=== PATIENT | female | born 1960 | race Caucasian/White ===

== ENCOUNTER → 2017-08-06 10:01 | Outpatient (CLI) | payer OTHER, SELFPAY ==
--- NOTE | 2017-08-06 10:11 | XR_ITS ---
XR chest 2V HISTORY: ITS.REASON: CHEST PAIN ORDERING PHYSICIAN: Elida Ortiz PATIENT AGE: 57 years COMPARISON: 02/22/2009 FINDINGS: The cardiomediastinal silhouette and pulmonary vascularity are within normal limits. The lungs are clear without infiltrates, suspicious nodules, or pleural effusions. Mild to moderate thoracic scoliosis convex right. IMPRESSION: No acute finding
[2017-08-06 10:43] LABS: Basophils % 0.4 % (0.1-2.0); Eosinophils # 0.2 K/mm3 (0.0-0.4); Eosinophils % 2.5 % (0.1-12.0); Hematocrit 45.1 % (37.0-47.0); Hemoglobin 14.8 g/dL (12.2-16.2); Lymphocytes # 1.2 K/mm3 (0.7-4.5); Mean Corpuscular HGB Conc 32.9 g/dL (31.8-35.4); Mean Corpuscular Hemoglobin 29.1 pg (27.0-31.2); Mean Corpuscular Volume 88.4 fl (81-99); Mean Platelet Volume 7.4 fl (7.4-10.4); Monocytes # 0.4 K/mm3 (0.1-1.0); Monocytes % 6.3 % (1.7-9.3); Neutrophils # 4.4 K/mm3 (1.8-7.8); Neutrophils % 71.7 % (37.0-80.0); Platelet Count 226 K/mm3 (142-424); Red Cell Distribution Width 11.9 % (11.5-17.5); White Blood Count 6.1 K/mm3 (4.8-10.8)
[2017-08-06 11:03] LABS: Troponin I < 0.02 ng/ml (0.00-0.06)
[2017-08-06 11:07] LABS: Alanine Aminotransferase 41 U/L (12-78); Albumin Level 3.6 gm/dL (3.4-5.0); Albumin/Globulin Ratio 0.9 (1.1-1.8); Alkaline Phosphatase 74 U/L (46-116); Anion Gap 11.3 mEq/L (5-15); Aspartate Amino Transferase 22 U/L (15-37); Bilirubin,Total 0.5 mg/dL (0.2-1.0); Blood Urea Nitrogen 13 mg/dL (7-18); C-Reactive Protein 1.5 mg/L (0.0-0.9); Calcium 8.7 mg/dL (8.5-10.1); Carbon Dioxide 31 mmol/L (21.0-32.0); Chloride 107 mmol/L (98-107); Creatine Kinase 111 U/L (26-192); Creatinine,Serum 0.71 mg/dL (0.55-1.02); Estimated Glomerular Filt Rate 84 ml/min (>60); GFR (African American) 102 ML/MIN (>60); Globulin 4.1 gm/dl (1.3-3.2); Glucose 103 mg/dL (74-106); Potassium 4.3 mmoL/L (3.5-5.1); Sodium 145 mmol/L (136-145); Thyroid Stimulating Hormone 1.37 uIU/ml (0.358-3.740); Total Protein,Serum 7.7 gm/dL (6.4-8.2)
== END ==
PROVIDERS: PCP Nurse Practitioner Family; Visit Provider Nurse Practitioner Family
DX: R07.9 Chest pain, unspecified (principal)
CPT/HCPCS: 36415; 71046; 80053; 82550; 84443; 84484; 85025; 86140

== ENCOUNTER → 2017-09-16 10:05 | Outpatient (CLI) | payer OTHER, SELFPAY ==
--- NOTE | 2017-09-16 10:08 | NM_ITS ---
CARDIOLITE SPECT MYOCARDIAL PERFUSION SCAN, REST AND STRESS: EXERCISE STRESS [facility] REVIEW QGS EF AND WALL MOTION EVALUATION: QPS - PERFUSION EVALUATION HISTORY: CHEST PAIN, PALPITATIONS DOSE: 11.02 mCi technetium 99m mibi intravenously at rest followed by 31.6 mCi technetium 99m mibi following the intravenous ministration of 0.4 mg of Lexiscan. Resting blood pressure is 157/83. Stress blood pressure 143/71. FINDINGS: Ejection fraction is calculated to be 70. Stress images reveal decreased activity in the anterolateral wall. Rest images reveal significantly improved activity in the lateral wall improvement in the anterior wall but still mildly diminished. Gated images calculated ejection fraction of 70% with anterior apical hypokinesis IMPRESSION: High risk abnormal stress test with large degree of anterior lateral ischemia accompanied by regional wall motion abnormality.
--- NOTE | 2017-09-16 10:08 | CA_ITS ---
PROCEDURE: 2-D M-mode and color Doppler study INDICATIONS FOR THE TEST: Chest pain + COPD Heart Murmur Tobacco Smoking Palpitations+ Fatigue Syncope Edema Hypertension Diabetes Mellitus Rheumatic Fever SOB+GARNICA Obesity+Hyperlipidemia Family History HD Additional History PATIENT INFORMATION HEIGHT: 60 WEIGHT:266 GENDER: Female B/P:142/59 2-D/M-MODE INTERPRETATION: 2-D MEASUREMENTS OBSERVED VALUES IN CMS Right Ventricular Dimension (RVDd) 2.3 Interventricular Septum (Thickness)(IVsd) 1.3 Left Ventricular Internal Dimensions(LVIDd) 4.4 Left Ventricular Posterior Wall (Thickness)(LVPWd) 0.7 Aortic Root 2.7 Aortic Cusp Separation 2.0 Left Atrial Dimensions (LAD) 4.3 2D 1. Left atrium is mildly enlarged, left ventricle is normal size, there is mild concentric left ventricular hypertrophy, visually estimated ejection fraction 55% with no obvious regional wall motion abnormality. 2. The right atrium and right ventricle are normal size and contractility. 3. The aortic valve is minimally thickened and fibrosed. 4. The mitral and tricuspid valvular grossly normal. 5. The pulmonic valve is poorly visualized. 6. No significant pericardial effusion noted. DOPPLER INTERROGATION: Doppler interrogation of the aortic, mitral and tricuspid valvular presence of mild mitral and tricuspid regurgitation, tricuspid regurgitant jet velocity is insufficient for calculation of the right ventricular systolic pressure, grade 1 diastolic dysfunction seen with tissue Doppler evidence of raised left atrial pressure. CONCLUSION: 1. Mildly enlarged left atrium, normal left ventricular size, mild concentric left ventricular hypertrophy, visually estimated ejection fraction 55% with no obvious regional wall motion abnormality, grade 1 diastolic dysfunction seen with tissue Doppler evidence of raised left atrial pressure. 2. Mild mitral and tricuspid regurgitation 3. No significant pericardial effusion noted.
--- NOTE | 2017-09-16 13:51 | HMH.ITSHM ---
diclofenac hydroxychloroqine lisinopril/hctz metoprolol promethazine rivaraxaban iron
== END ==
PROVIDERS: Family Provider Family Medicine; PCP Nurse Practitioner Family; Visit Provider Internal Medicine
DX: R07.9 Chest pain, unspecified (principal); R94.31 Abnormal electrocardiogram [ECG] [EKG]; R06.00 Dyspnea, unspecified; R00.2 Palpitations; E66.9 Obesity, unspecified
CPT/HCPCS: 78452; 93017; 93306; A9502; J2785

== ENCOUNTER → 2017-12-24 08:31 | Outpatient (CLI) | payer OTHER, SELFPAY ==
--- NOTE | 2017-12-24 08:32 | US_ITS ---
US Arterial Ankle Brachial Ind History: ITS.REASON: claudication, leg pain and fatigue ORDERING PHYSICIAN: Jake Mena MD PATIENT AGE: 57 years TECHNIQUE: Segmental pressures obtained of both right and left leg. These are compared to brachial blood pressure to yield index at each level sampled including summary DEBORAH. The data sheets from the procedure are available in PACS FINDINGS Rest study only performed today No prior studies available for comparison. Blood pressures reported are in millimeters mercury. RIGHT LEG DEBORAH = 1.2. RIGHT LEG TBI=.9 Brachial BP: 108 Thigh BP: 139 Calf BP: 140 Ankle PT: 125 Ankle DP : 121 Digit =93 LEFT LEG DEBORAH = 1.1 LEFT LEG TBI= 1.0 Brachial BPD: 104 Thigh BP: 131 Calf BP: 126 Ankle PT:113 Ankle DP: 107 Digit = 104 Pulses and waveforms: Normal IMPRESSION: The ABIs as reported above are within normal limits. Waveforms and pulses are also unremarkable.
== END ==
PROVIDERS: Family Provider Family Medicine; PCP Nurse Practitioner Family; Visit Provider Internal Medicine
DX: I73.9 Peripheral vascular disease, unspecified (principal)
CPT/HCPCS: 93922

== ENCOUNTER → 2018-03-21 09:00 | Outpatient (CLI) | payer OTHER, SELFPAY ==
--- NOTE | 2018-03-21 09:02 | MM_ITS ---
MM Dig screening mamm BI w/CAD CAD Screening COMPARISON: Analog mammograms 11/02/2009 INDICATION: There is a history of breast cancer patient maternal aunt diagnosed after menopause. TECHNIQUE: Standard CC and MLO images were obtained. R2 CAD reviewed. FINDINGS: The breasts are composed primarily of fat with scattered fibroglandular densities throughout each breast. There is a mole marker right breast. There are couple of benign-appearing calcifications right breast and there is a single benign-appearing calcification left breast. There are small nodes in both axilla. There is no suspicious lesion seen. IMPRESSION: Fibrofatty parenchyma with no suspicious lesion seen BI-RADS Category: 2 Benign Finding(s) RECOMMENDED FOLLOW-UP: 1YR - 1 YEAR FOLLOW-UP (A letter has been sent to the patient regarding results of the study.)
== END ==
PROVIDERS: PCP Nurse Practitioner Family; Visit Provider Nurse Practitioner Family
DX: Z12.31 Encounter for screening mammogram for malignant neoplasm of breast (principal)
CPT/HCPCS: 77067

== ENCOUNTER → 2019-07-15 13:26 | Outpatient (CLI) | payer OTHER, SELFPAY ==
--- NOTE | 2019-07-15 13:29 | MM_ITS ---
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 R2 CAD reviewed. FINDINGS: The breasts are of average density. Multiple benign appearing lymph nodes are seen bilaterally in the prepectoral regions. A 4.8 millimeter circumscribed nodule is seen in the superior retroareolar right breast approximately 5.2 centimeters deep to the anterior skin surface. This is best appreciated on the tomosynthesis views. A 6.9 millimeter well-circumscribed nodule is seen adjacent to the left chest wall on the exaggerated CC view. Ultrasound is recommended for further assessment of both breasts. Indeterminate clustered microcalcifications are seen in the deep lateral and superior left breast seen on the MLO view and the exaggerated CC view from the CC views. Magnification compression views are recommended. Clustered microcalcifications in the upper-outer quadrant of the right breast are more conspicuous on today's exam and magnification views are recommended. IMPRESSION: BI-RAD Category: 0 Need Additional Imaging Evaluation FOLLOW-UP: (A letter has been sent to the patient regarding results of the study.) Dictated by: Xander Thomason 07/16/2019 18:09 Electronically signed by Xander Thomason in [place] 07/16/2019 18:09
== END ==
PROVIDERS: PCP Nurse Practitioner Family; Visit Provider Nurse Practitioner Family
DX: Z12.31 Encounter for screening mammogram for malignant neoplasm of breast (principal)
CPT/HCPCS: 77063; 77067

== ENCOUNTER → 2019-07-29 10:36 | Outpatient (CLI) | payer OTHER, SELFPAY ==
--- NOTE | 2019-07-29 10:44 | US_ITS ---
PROCEDURE: US BREAST RT COMPLETE CLINICAL INDICATION: ABN MAMM COMPARISON: MM DIG SCREENING MAMM BI W/CAD from 07/15/2019 US BREAST LT COMPLETE from 07/29/2019 FINDINGS: At the 12 o'clock region near the nipple there is a 5 mm hypoechoic nodule suggestive of a small cyst. At 3 o'clock near the nipple there is a complex nodule in the subcutaneous area measuring 7 x 7 mm. This shows increased echogenicity peripherally with decreased echogenicity centrally. This is of questionable etiology possibly due to sebaceous cyst. Small abscess would be an additional consideration. IMPRESSION: Complex nodule in the 3 o'clock region of the right breast which could be due to a sebaceous cyst or small abscess. Suggest 3 month follow-up. BI-RADS category 3 probably benign. Recommend 3 month sonographic follow-up Dictated by: Darren Reyes MD 09/09/2019 17:05 Electronically signed by Darren Reyes MD in [place] 09/09/2019 17:05
--- NOTE | 2019-07-29 10:44 | US_ITS ---
PROCEDURE: US BREAST LT COMPLETE CLINICAL INDICATION: ABN MAMM COMPARISON: MM DIG SCREENING MAMM BI W/CAD from 07/15/2019 FINDINGS: No cystic or solid nodules evident. Small nodes are present in the axilla. IMPRESSION: Negative left breast ultrasound. BI-RADS category 1-. Recommend routine 12 month follow-up Dictated by: Darren Reyes MD 07/31/2019 12:05 Electronically signed by Darren Reyes MD in [place] 07/31/2019 12:05
== END ==
PROVIDERS: PCP Nurse Practitioner Family; Visit Provider Nurse Practitioner
DX: R92.8 Other abnormal and inconclusive findings on diagnostic imaging of breast (principal)
CPT/HCPCS: 76641

== ENCOUNTER → 2019-10-05 10:05 | Outpatient (CLI) | payer OTHER, SELFPAY ==
--- NOTE | 2019-10-05 10:55 | MM_ITS ---
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 These are mildly suspicious and stereotactic biopsy is suggested Right breast ultrasound: 12 o'clock there is a 5 x 3 mm hypoechoic nodule consistent with a cyst. At 3 o'clock there is a hyperechoic nodule with central area of decreased echogenicity. The nodule measures 5 x 4 mm previously measuring approximately 1 cm and has decreased in size. Left breast: Probably benign calcifications in the outer aspect of the left breast versus quantum artifact. Recommend six-month follow-up. IMPRESSION: Suspicious cluster of calcification of the right breast. Suggest stereotactic biopsy. BI-RAD Category: 4 Suspicious Abnormality - Biopsy Considered FOLLOW-UP: BIO Biopsy Recommended (A letter has been sent to the patient regarding results of the study.) Dictated by: Darren Reyes MD 10/09/2019 13:45 Electronically signed by Darren Reyes MD in [place] 10/09/2019 13:45
== END ==
PROVIDERS: PCP Nurse Practitioner Family; Visit Provider Nurse Practitioner
DX: R92.8 Other abnormal and inconclusive findings on diagnostic imaging of breast (principal)
CPT/HCPCS: 76641; 77062; 77066; G0279

== ENCOUNTER → 2019-11-11 09:37 | Outpatient (CLI) | payer OTHER, SELFPAY ==
--- NOTE | 2019-11-11 09:42 | MM_ITS ---
PROCEDURE: MM STEREOTACTIC LOC RT CLINICAL INDICATION: RT BREAST LUMP Right breast suspicious calcifications TECHNIQUE: The patient was given 1 mg of Xanax, Lortab 5 mg, and analgesia and minor sedation. Informed consent was obtained prior to sedation. Time-out procedure was performed The patient was placed on the stereotactic table and the abnormality was localized in the most appropriate projection. The breast was prepped in the routine manner, with sterile prep and the overlying skin anesthetized. A 3 to 4 mm skin incision was performed and the 9 gauge sorus vacuum-assisted core biopsy needle was advanced to the region of the calcification. Pre- and post fire images were obtained. After adequate positioning relative to the calcifications was ensured, multiple biopsies were obtained in the region of the calcifications specifically. The core biopsies obtained were sent for specimen mammography. After the calcifications were indeed identified on the specimen mammogram, the procedure was terminated. The patient tolerated the procedure well without complications. Specimen was sent for pathologic analysis which should be forthcoming within 3 working days. Routine follow-up phone call to patient is to be performed as well. A tiny titanium nonferromagnetic MicroMark was positioned through the mammotome needle into the biopsy site. IMPRESSION: 1. Successful stereotactic vacuum-assisted core biopsy of the breast calcifications. 2. Successful placement of a titanium metal MicroMark. 3. Pathologic analysis should be forthcoming within 3 working days. 4. No noted complications. SPECIMEN RADIOGRAPH: The mammographically evident calcifications from the prior study are currently evident within the Tan dish and within the specimens obtained during mammotome procedure. This is considered an adequate specimen and the procedure was terminated. IMPRESSION: Successful removal of described breast calcifications. BREAST MAMMOGRAM: Compared to the prior study, the previously noted calcification have been removed. A small MicroMark clip was inserted into the region of the calcifications. There is evidence of soft tissue changes in the region of the biopsy was soft tissue gas and edema. 5. Adequate placement of the MicroMark clip postbiopsy. 6. Postbiopsy changes within the breast. Dictated by: Darren Reyes MD 11/13/2019 10:32 Electronically signed by Darren Reyes MD in [place] 11/13/2019 10:32
== END ==
PROVIDERS: PCP Nurse Practitioner Family; Visit Provider Nurse Practitioner
DX: N63.10 Unspecified lump in the right breast, unspecified quadrant (principal)
CPT/HCPCS: 19081; 76098; 77065

== ENCOUNTER → 2020-11-01 10:03 | Outpatient (CLI) | payer OTHER, SELFPAY ==
--- NOTE | 2020-11-01 10:09 | XR_ITS ---
PROCEDURE: XR CHEST 2V CLINICAL HISTORY: COUGH COMPARISON: DX CXR2V XR chest 2V from 08/06/2017 FINDINGS: The cardiomediastinal silhouette and pulmonary vascularity are within normal limits. The lungs are clear without infiltrates, suspicious nodules, or pleural effusions. Dextroscoliosis of the lower thoracic spine. IMPRESSION: No acute findings. Dictated by: Darren Reyes MD 11/01/2020 11:08 Darren Reyes MD in [place] 11/01/2020 11:08
== END ==
PROVIDERS: PCP Nurse Practitioner Family; Visit Provider Nurse Practitioner Family
DX: R05 Cough (principal)
CPT/HCPCS: 71046

== ENCOUNTER → 2022-02-23 10:17 | Outpatient (CLI) | payer BC, SELFPAY ==
--- NOTE | 2022-02-23 10:25 | XR_ITS ---
FINAL REPORT CLINICAL HISTORY: RIGFT ANTERIOR KNEE PAIN FINDINGS: RIGHT KNEE Four views of the right knee were obtained. There is no acute fracture or dislocation. There are mild degenerative changes of the medial compartment. A small joint effusion is identified. Soft tissues are otherwise unremarkable. IMPRESSION: Mild degenerative change of the medial compartment with a small joint effusion. No acute abnormality. Reviewed, Interpreted and Dictated by Kaden South MD Transcribed by Mariana Campbell Authenticated and [facility]
== END ==
PROVIDERS: PCP Nurse Practitioner Family; Visit Provider Nurse Practitioner Family
DX: M25.561 Pain in right knee (principal)
CPT/HCPCS: 73562

== ENCOUNTER → 2022-03-15 14:13 | Outpatient (CLI) | payer BC, OTHER, SELFPAY | PROVIDERS: PCP Nurse Practitioner Family; Visit Provider Physician Assistant | DX: I51.89 Other ill-defined heart diseases (principal) | CPT/HCPCS: 93306 ==

== ENCOUNTER 2022-04-26 15:00 | Outpatient (RCR) | payer BC, SELFPAY | END 2022-05-15 17:15 | disposition home or self-care (01) | LOC: PT.CARL 15:00 | PROVIDERS: PCP Nurse Practitioner Family; Visit Provider Nurse Practitioner Women's Health | DX: M17.11 Unilateral primary osteoarthritis, right knee (principal) | CPT/HCPCS: 97010; 97014; 97110; 97163; 97530; G0283 ==

== ENCOUNTER → 2023-03-29 12:57 | Outpatient (CLI) | payer BC, SELFPAY ==
--- NOTE | 2023-03-29 12:57 | CT_ITS ---
FINAL REPORT TECHNIQUE: Before and after the administration of intravenous contrast, axial images through the chest were performed by computed tomography.This study was performed with techniques to keep radiation doses as low as reasonably achievable, (ALARA). Individualized dose reduction techniques using automated exposure control or adjustment of mA and/or kV according to the patient's size were employed. CLINICAL HISTORY: wheezing on auscultation-pt can hear it, h/oCovid COMPARISON: None FINDINGS: CHEST CT WITH AND WITHOUT CONTRAST: There is mild mediastinal adenopathy, which is nonspecific but favor reactive. No significant hilar or axillary adenopathy is seen. Mild changes of emphysema are present, as well as mild changes of scarring and fibrosis. The cardiac silhouette is unremarkable in appearance. There are several small nodules in the lung francois bilaterally, less than 1 cm in size. This includes a 5 mm posterior right upper lobe nodule seen best in image #32, and a 6 mm posterior left upper lobe nodule, also seen in image #32, and several others. No focal infiltrates or pleural effusions are identified. There is mild fatty infiltration of the liver noted in the upper abdomen. IMPRESSION: Several nodules are present in the lung francois bilaterally, all less than 1 cm in size, as described above. Would recommend 6-month follow-up chest CT to reevaluate. Mild mediastinal adenopathy, nonspecific but favor reactive. Reviewed, Interpreted and Dictated by Moe Cortés III, MD Transcribed by Josie Marin Authenticated and [facility]
[2023-03-29 13:26] LABS: Blood Urea Nitrogen 18 mg/dl (7-17); Calcium 8.8 mg/dl (8.4-10.2); Carbon Dioxide 25 mmol/L (22.0-30.0); Chloride 105 mmol/L (98-107); Estimated Glomerular Filt Rate 72 ml/min (>60); GFR (African American) 87 ML/MIN (>60); Glucose 95 mg/dl (74-100); Sodium 139 mmol/L (136-145)
== END ==
PROVIDERS: PCP Nurse Practitioner Family; Visit Provider Physician Assistant
DX: R06.2 Wheezing (principal); Z86.16 Personal history of COVID-19; E78.2 Mixed hyperlipidemia; I48.0 Paroxysmal atrial fibrillation; R53.83 Other fatigue; R60.9 Edema, unspecified; E66.01 Morbid (severe) obesity due to excess calories; Z68.43 Body mass index [BMI] 50.0-59.9, adult; I11.9 Hypertensive heart disease without heart failure
CPT/HCPCS: 71270; 80048; Q9967

== ENCOUNTER → 2023-05-16 15:39 | Outpatient (CLI) | payer BC, SELFPAY ==
[2023-05-16 15:22] LABS: Adenovirus,PCR Not Detected (NotDetected); Coronavirus 19, PCR Not Detected (NotDetected); Coronavirus 229E Not Detected (NotDetected); Coronavirus NL63 Not Detected (NotDetected); Coronavirus OC43 Not Detected (NotDetected); Coronovirus HKU1,PCR Not Detected (NotDetected); Human Metapneumovirus Not Detected (NotDetected); Influenza A, PCR Not Detected (NotDetected); Influenza AH1, 2009 Not Detected (NotDetected); Influenza AH1, PCR Not Detected (NotDetected); Influenza AH3,PCR Not Detected (NotDetected); Influenza B, PCR Not Detected (NotDetected); Parainfluenza 1, PCR Not Detected (NotDetected); Parainfluenza 2, PCR Not Detected (NotDetected); Parainfluenza 3, PCR Not Detected (NotDetected); Parainfluenza 4, PCR Not Detected (NotDetected); Rhinovirus/Enterovirus Not Detected (NotDetected)
[2023-05-16 16:57] LABS: Respiratory Syncytial Virus Detected (NotDetected)
== END ==
LOC: LAB.DROPOF 15:41
PROVIDERS: PCP Nurse Practitioner Family; Visit Provider Internal Medicine
DX: R05.9 Cough, unspecified (principal); R09.89 Other specified symptoms and signs involving the circulatory and respiratory systems; R06.2 Wheezing; B97.4 Respiratory syncytial virus as the cause of diseases classified elsewhere
CPT/HCPCS: 87632; 87635

== ENCOUNTER 2024-02-27 14:06 | Outpatient (CLI) | payer OTHER, MEDICARE, SELFPAY ==
--- NOTE | 2024-02-27 14:27 | CT_ITS ---
FINAL REPORT TECHNIQUE: Axial images through the chest was performed using high-resolution technique. Supine inspiration and expiration images were obtained as well as prone inspiration. CLINICAL HISTORY: .cough, copd COMPARISON: 03/29/2023 FINDINGS: There is no evidence of mediastinal mass or adenopathy. There is a thoracic scoliosis convex to the right measuring 40 degrees. There are mild changes of centrilobular emphysema in the upper lobes. Linear scar and fibrosis is noted in the lower lobes. There are multiple areas of air trapping in the lower lobes bilaterally and smaller areas in the upper lobes, probably due to underlying bronchiolitis. IMPRESSION: Minimal scar or fibrosis at the bases. Multifocal areas of air trapping with underlying bronchiolitis. Reviewed, Interpreted and Dictated by Leonel Fletcher MD Transcribed by Shweta Castaneda Authenticated and [facility][1]
[2024-02-27 14:44] LABS: Basophils % 0.5 % (0.1-2.0); Eosinophils # 0.2 K/mm3 (0.0-0.4); Eosinophils % 2.3 % (0.1-12.0); Hematocrit 46.4 % (37.0-47.0); Hemoglobin 15.1 g/dL (12.2-16.2); Lymphocytes # 1.3 K/mm3 (0.7-4.5); Mean Corpuscular HGB Conc 32.5 g/dL (31.8-35.4); Mean Corpuscular Hemoglobin 29.8 pg (27.0-31.2); Mean Corpuscular Volume 91.8 fl (81-99); Mean Platelet Volume 7.8 fl (7.4-10.4); Monocytes # 0.5 K/mm3 (0.1-1.0); Monocytes % 6.5 % (1.7-9.3); Neutrophils # 6.1 K/mm3 (1.8-7.8); Neutrophils % 74.6 % (37.0-80.0); Platelet Count 256 K/mm3 (142-424); Red Blood Count 5.06 M/mm3 (4.20-5.40); Red Cell Distribution Width 12.8 % (11.5-17.5); White Blood Count 8.1 K/mm3 (4.8-10.8)
[2024-02-27 14:58] LABS: Alanine Aminotransferase 21 U/L (12-78); Albumin Level 4.5 g/dl (3.5-5.0); Albumin/Globulin Ratio 1.5 (1.1-1.8); Alkaline Phosphatase 66 U/L (38-126); Anion Gap 9.9 mEq/L (5-15); Aspartate Amino Transferase 35 U/L (14-36); Bilirubin,Total 0.8 mg/dl (0.2-1.3); Blood Urea Nitrogen 22 mg/dl (7-17); Calcium 9.5 mg/dl (8.4-10.2); Carbon Dioxide 28 mmol/L (22.0-30.0); Chloride 106 mmol/L (98-107); Estimated Glomerular Filt Rate 63 ml/min (>60); GFR (African American) 76 ML/MIN (>60); Glucose 93 mg/dl (74-100); Potassium 3.9 mmoL/L (3.5-5.1); Sodium 140 mmol/L (136-145); Total Protein,Serum 7.5 g/dl (6.3-8.2)
[2024-02-27 14:59] LABS: Uric Acid 8.4 mg/dl (2.5-6.2)
[2024-02-27 15:00] LABS: Erythrocyte Sedimentation Rate 17 mm/hr (0-30)
[2024-02-27 15:04] LABS: C-Reactive Protein 14.6 mg/L (0-4)
[2024-02-27 15:50] VITALS: PULSE 59
[2024-02-27] MEDS: ALBUTEROL 0.083% 2.5 MG/3 ML NEB IH (15:50)
[2024-02-29 10:12] LABS: RA Latex Turbid. 21.6 IU/mL (<14.0)
[2024-02-29 13:37] LABS: Anti-Cyclic Citrullinated Pept 7 units (0-19)
[2024-03-04 12:20] LABS: Aspergillus fumigatus IgG Negative (Negative); Pigeon Serum Abs Negative (Negative)
[2024-04-02 15:32] LABS: Antinuclear Antibodies, IFA Positive
[2024-04-02 15:33] LABS: Antinuclear Antibodies (ANA) Negative
== END 2024-02-27 23:59 | disposition home or self-care (01) ==
LOC: RAD 14:07
PROVIDERS: Internal Medicine; PCP Nurse Practitioner Family; Visit Provider Internal Medicine Pulmonary Disease
DX: J84.9 Interstitial pulmonary disease, unspecified (principal); R06.09 Other forms of dyspnea
CPT/HCPCS: 36415; 71250; 80053; 84550; 85025; 85651; 86038; 86140; 86200; 86225; 86235; 86331; 86431; 86602; 86606; 86609; 94060; 94618; 94640; 94726; 94729; J7613

== ENCOUNTER 2024-03-17 12:42 | Outpatient (CLI) | payer OTHER, MEDICARE, SELFPAY ==
--- NOTE | 2024-03-17 12:42 | MM_ITS ---
PROCEDURE INFORMATION: Exam: MG Bilateral Screening 3D Mammography Exam date and time: 03/17/2024 12:50 PM Age: 63 years old Clinical indication: Screening examination. TECHNIQUE: Imaging protocol: Bilateral Screening tomosynthesis and 2D mammography including computer-aided detection (CAD) when performed. COMPARISON: 1. MG MM CLIP PLACEMENT RT 11/11/2019 11:16 AM 2. MG MM SURGICAL SPECIMEN RT 11/11/2019 11:05 AM FINDINGS: MAMMOGRAPHY: Breast composition: The breasts are almost entirely fatty. Mass: None. Architectural distortion: None. Calcifications: No suspicious calcifications. Asymmetric density: None. Skin thickening: None. Axillary adenopathy: None. IMPRESSION: No mammographic evidence of malignancy. Annual screening is recommended unless otherwise clinically indicated. ASSESSMENT: BI-RADS Category 1: Negative.
== END 2024-03-17 23:59 | disposition home or self-care (01) ==
LOC: RAD 12:42
PROVIDERS: PCP Orthopaedic Surgery; Visit Provider Nurse Practitioner Family
DX: Z12.31 Encounter for screening mammogram for malignant neoplasm of breast (principal)
CPT/HCPCS: 77063; 77067

== ENCOUNTER 2024-04-28 11:43 | Outpatient (CLI) | payer OTHER, MEDICARE, SELFPAY ==
[2024-04-28 13:09] LABS: C-Reactive Protein 2.1 mg/L (0-4)
== END 2024-04-28 23:59 | disposition home or self-care (01) ==
LOC: LAB 11:44
PROVIDERS: PCP Nurse Practitioner Family; Visit Provider Internal Medicine Pulmonary Disease
DX: R06.09 Other forms of dyspnea (principal)
CPT/HCPCS: 36415; 86140

== ENCOUNTER 2024-05-28 12:20 | Day surgery (SDC) | payer BC, OTHER, MEDICARE, SELFPAY ==
--- NOTE | 2024-05-21 12:47 | SUR.PREOP ---
1245: Attempted preop call. Arrival time and call back left in message.
[2024-05-25 09:34] VITALS: BMI 50.8
[2024-05-28 12:38] VITALS: BP 164/70; PULSE 72; RESP 18; TEMP 37.1; O2SAT 96
--- NOTE | 2024-05-28 12:50 | P.HP_ITS ---
History of Present Illness *Admission Date: 05/28/24 *Reason for visit:: GERD/noncardiac chest pain and screening colonoscopy *History of present illness: Ms. Persaud is a 63-year-old female who is here for diagnostic EGD and screening colonoscopy. The patient has had chest pain/pressure, GERD and midsternal gurgling and referred by cardiology. She has never had a colonoscopy for screening. The examination is deemed medically necessary for diagnostic EGD and screening colonoscopy. The patient has been seen, interviewed and examined prior to the procedure by both myself and the anesthesia provider. [facility] Disclaimer: The information contained in this section may have been updated after the patient was seen, as this information can be updated by other users. 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 Surgical History H/O dilation and curettage History of Family History Family/Other Diabetes Stroke FHx: mental illness Hypertension Social History (Updated 05/28/24 @ 12:40 by Batsheva Maya RN) Smoking Status: Never smoker second hand exposure: No alcohol intake: never substance use type: denies use current occupational status: retired Travel in the last 8 weeks: None household members: spouse housing: house current occupational exposures/hazards: No caffeine: No Have you lived/traveled outside [place] in past 30 days?: No Contact w/someone who lives/traveled outside US past 30 days?: No Exposure to someone with infectious disease in past 14 days?: No Do you have a fever (greater than 100.4 F or 38 C)?: No Have you tested positive for COVID-19: Yes Exposed to someone with COVID-19 in past 14 days?: No Do you have a sore throat?: No Do you have a cough?: No Do you have any weakness?: No Are you experiencing any nausea/vomitting?: No Do you have any diarrhea?: No Are you experiencing any unusual bleeding?: No Do you have any muscle aches/pain?: No Do you have any abdominal pain?: No Are you experiencing loss of taste or smell?: No Other Medical History Have you received the Flu Vaccine for this season: No Have you received the Pneumonia Vaccine: No Review of Systems Review of Systems Review of systems (narrative): Negative *Cardiovascular Comments: Negative *Gastrointestinal Comments: Negative *Genitourinary Comments: Negative *Musculoskeletal Comments: Negative *Neurologic Comments: Negative Meds Home Medications and Allergies Home Medications ?Medication ?Instructions ?Recorded ?Confirmed ?Type hydroxychloroquine 200 mg tablet 200 mg PO DAILY 08/27/17 05/28/24 History lisinopril 20 1 tab PO DAILY #90 tabs 09/30/23 05/28/24 Rx mg-hydrochlorothiazide 25 mg tablet rivaroxaban 20 mg tablet (Xarelto) 20 mg PO DAILY #90 tabs 10/03/23 05/28/24 Rx bisoprolol fumarate 10 mg tablet See Rx Instructions .Route 04/13/24 05/28/24 Rx .COMPLEX #90 tabs sodium,potassium,mag sulfates 17.5 See Rx Instructions PO .COMPLEX 05/18/24 Rx gram-3.13 gram-1.6 gram oral soln #354 mL (Suprep Bowel Prep Kit) New Prescriptions to Start Prescriptions: Allergies Allergy/AdvReac Type Severity Reaction Status Date / Time prednisone AdvReac migraines Verified 05/28/24 12:35 Exam Data for Last 24 hours I & O for Last 24 hours: Intake & Output 05/25/24 05/26/24 05/27/24 05/28/24 23:59 23:59 23:59 23:59 Weight 260 lb *Routine HEENT Exam Head: Present normocephalic Eye: Present EOMI and PERRL ENT: Present mucous membranes moist *Routine Neck Exam Neck: Present supple *Routine Respiratory Exam Respiratory: Present CTA bilaterally *Routine Cardiovascular Exam Cardiovascular: Present RRR *Routine Abdominal Exam Abdominal: Present soft and normoactive bowel sounds; Absent tenderness *Routine Rectal Exam Rectal:: deferred *Routine Genitalia Exam Genitalia:: deferred *Routine Extremities Exam Extremities: Absent cyanosis, clubbing or edema *Routine Skin Exam Skin: Present warm; Absent rash *Routine Neurological Exam Neurological: Present alert and oriented X3 Assessment and Plan *Assessment and plan (1) Chronic GERD: Status: Acute Category: Medical Code(s): K21.9 - Gastro-esophageal reflux disease without esophagitis (2) Non-cardiac chest pain: Status: Acute Category: Medical Code(s): R07.89 - Other chest pain (3) Esophageal spasm: Status: Acute Category: Medical Code(s): K22.4 - Dyskinesia of esophagus (4) Screening for colon cancer: Status: Acute Category: Medical Code(s): Z12.11 - Encounter for screening for malignant neoplasm of colon Plan A/P: 1. Chronic GERD with globus sensation and chest pressure for upper endoscopy and screening for colon cancer for colonoscopy is the preprocedural diagnosis. The patient will be anesthetized/sedated using MAC sedation. The patient has been seen and examined. Cardiac and lung assessment prior to the examination is stable. Proceed with planned EGD and screening colonoscopy
[2024-05-28] MEDS: LACTATED RINGERS 1000ML 1,000 ML 25 ML IV (12:53)
--- NOTE | 2024-05-28 13:06 | P.PCN_ITS ---
[facility] Procedure Note Date: 05/28/24 Time: 13:16 Procedure Note:: Upper Endoscopy Procedure Report: Esophagogastroduodenoscopy with cold biopsies and TTS balloon dilation Endoscopost: Reno Toscano II, MD Referring Physician: RAMON Samaniego Date of Procedure: May 28, 2024 Equipment: Olympus GIF 190 standard upper endoscope Sedation: MAC sedation Indications: Ms. Persaud is a 63-year-old female who is here for diagnostic upper endoscopy secondary to chest pressure that she reports like esophageal spasms . The patient does have some chest gurgling and pressure. She did see both cardiology and pulmonary medicine and there was no clear cardiac or lung etiology. She does have a long history of GERD. She does get some intermittent heartburn which is usually related to her food choices. The patient does have some bloating and moderate gassiness. She reports no dysphagia but does have some globus sensation. She reports no belching. She reports regular bowel function. She has never had an EGD or colonoscopy. Procedure: Prior to the procedure, a history and physical exam was performed, and patient's medications and allergies were reviewed. The risks, benefits and alternatives of the sedation and procedure were discussed with the patient. All questions w ere answered and informed consent was obtained. The patient was brought to the procedure room. Patient identification and proposed procedure were verified by the physician and the nurse. The patient was placed in a left lateral decubitus position and the scope was passed under direct vision. Throughout the procedure, the patient's blood pressure, pulse, and oxygen saturations were monitored continuously. The upper GI endoscopy was accomplished without difficulty. The patient tolerated the procedure well. Findings: The scope was passed directly into the upper esophagus and advanced to the third portion of the duodenum. The post bulbar duodenum and duodenal bulb were normal with normal mucosa and conniventes. The scope was withdrawn through a normal duodenal bulb and pylorus into the stomach. The antrum was normal. There was moderate chronic gastritis with mosaic/reticular pattern in the body and fundus?suggestive of H. pylori gastritis. Biopsies were taken along the lesser curvature and incisura to rule out H. pylori. Upon retroflexion there was no hiatal hernia. The scope was then withdrawn into the esophagus. There was no evidence of reflux esophagitis or Valenzuela's. There were tertiary contractions and evidence of mild to moderate esophageal dysmotility. There was no corrugation or rings. There was no proximal esophageal inlet patch. The entire esophagus was dilated to 60 Divehi/20 mm with a TTS hydrostatic balloon with minimal resistance. The remainder of the esophageal mucosa was normal. Impression: 1. Nonerosive GERD with moderate esophageal dysmotility 2. Chronic gastritis?rule out H. pylori Plan: I will follow-up the biopsies to rule out H. pylori. I do suspect that the patient is having intermittent esophageal spasm. I would consider dietary measures and [id number] herbal Iberogast twice daily. I will proceed with colonoscopy.
[2024-05-28 13:07] VITALS: O2SAT 97
--- NOTE | 2024-05-28 13:39 | P.PCN_ITS ---
[facility] Procedure Note Date: 05/28/24 Time: 13:40 Procedure Note:: Colonoscopy Procedure Report: Colonoscopy with cold snare polypectomy and Endo Clip placement Endoscopist: Reno Toscano II, MD Referring physician: RAMON Samaniego Date of Procedure: May 28, 2024 Equipment: Olympus 190 variable stiffness pediatric colonoscope Sedation: MAC sedation Indication: Ms. Persaud is a 63-year-old female who is here for initial screening colonoscopy. She reports no abdominal pain, weight loss, change in her bowel habits or family history of colon cancer. Procedure: Prior to the procedure, a history and physical exam was performed, and patient's medications and allergies were reviewed. The risks, benefits and alternatives of the sedation and procedure were discussed with the patient. All questions were answered and informed consent was obtained. The patient was brought to the procedure room. Patient identification and proposed procedure were verified by the physician and the nurse. The patient was placed in a left lateral decubitus position and the scope was passed under direct vision. Throughout the procedure, the patient's blood pressure, pulse, and oxygen saturations were monitored continuously. The colonoscopy was accomplished without difficulty. The patient tolerated the procedure well. Findings: On digital rectal examination there was normal rectal tone. There were no external hemorrhoids. The colonoscope was introduced through the anal canal to the rectum and advanced to the cecum. The ileocecal valve and appendiceal orifice were identified. The scope was advanced a short distance into the ileum which appeared grossly normal. The scope was then withdrawn into the colon. There were 10 colon polyps (transverse x 6 (3, 4, 4, 5, 6 and 6 mm), descending x 2 (4 and 5 mm) and sigmoid x 2 (5 and 14 mm). The 13 mm polyp had some surrounding edema and some central depression. All of the polyps were removed via cold snare polypectomy. The remaining cecum, ascending and transverse colon and mucosa were grossly normal. There were scattered diverticuli throughout the descending and sigmoid colon (LEFT colon). The rectum itself was normal. Upon retroflexion within the rectum there were grade 2 internal hemorrhoids. The preparation was excellent throughout with [place] Preparation Score of 9. The cecal time was 17 minutes. Impression: 1. Colonic polyps x 10 (largest of which was 14 mm sigmoid polyp) 2. Left-sided diverticulosis 3. Grade 2 internal hemorrhoids Plan: I will follow-up the polyp histology and recommend repeat surveillance colonoscopy again in 1 year based upon pathologic findings. I would encourage psyllium fiber supplementation on a long-term daily maintenance basis.
[2024-05-28 13:43] VITALS: BP 89/43; PULSE 73; RESP 18; TEMP 36.6; O2SAT 95
[2024-05-28 13:53] VITALS: BP 88/48; PULSE 74; RESP 18; O2SAT 96
[2024-05-28 14:13] VITALS: BP 121/54; PULSE 72; RESP 18; O2SAT 96
[2024-05-28 14:23] VITALS: BP 111/74; PULSE 68; RESP 18; O2SAT 99
== END 2024-05-28 14:23 | disposition home or self-care (01) ==
PROVIDERS: PCP Nurse Practitioner Family; Visit Provider Internal Medicine Gastroenterology
PROC: 0DJ08ZZ Inspection of Upper Intestinal Tract, Via Natural or Artificial Opening Endoscopic (ICD-10-PCS; CPT 45378; principal; 2024-05-28 14:00)
DX: K21.9 Gastro-esophageal reflux disease without esophagitis (principal); R07.89 Other chest pain; K22.4 Dyskinesia of esophagus; Z12.11 Encounter for screening for malignant neoplasm of colon; K29.70 Gastritis, unspecified, without bleeding; K63.5 Polyp of colon; K57.30 Diverticulosis of large intestine without perforation or abscess without bleeding; K64.1 Second degree hemorrhoids
CPT/HCPCS: 43239; 43249; 45385; C1726; J7120

== ENCOUNTER 2024-07-25 13:21 | Observation (INO) | payer BC, MEDICARE, SELFPAY ==
[2024-07-25] VITALS (44 sets, daily range): BP systolic 73–134; BP diastolic 33–105; PULSE 66–85; RESP 12–25; TEMP 37.3–37.7; O2SAT 90–99; BMI 50.1; BMI 45.4
--- NOTE | 2024-07-25 13:44 | HMH.EDGENADL ---
Discharge Plan Disposition Patient Disposition: Admitted Clinical Impressions Clinical Impression: Hypoxia Discharge ED Provider: Ernesto Schwartz General Adult HPI <Elisa Howard APRN - Last Filed: 07/25/24 18:39> General Chief complaint: Shortness of Breath/Dyspnea Stated complaint: flu+, soa, nausea, sore throat, dizzy Time Seen by Provider: 07/25/24 13:25 Mode of Arrival: Ambulatory Source of Information: Patient Limitations: No Limitations Description of Symptoms (Recalled from ER Triage Doc. by RN): c/o cough, sore throat, soa with walking, ears popping , no energy, not eating much since Saturday when she was dx with flu History of Present Illness HPI narrative: Patient is a 63-year-old female PMHx A-fib, HLD, HTN, interstitial lung disease who presents to the ED for shortness of breath, decreased appetite, nausea. Patient states she tested positive for influenza A this past Saturday, states she feels fatigued. Related Data Home Medications ?Medication ?Instructions ?Recorded ?Confirmed hydroxychloroquine 200 mg tablet 200 mg PO DAILY 08/27/17 07/25/24 atorvastatin 20 mg tablet 20 mg PO DAILY 07/25/24 07/25/24 Previous Rx's ?Medication ?Instructions ?Recorded lisinopril 20 1 tab PO DAILY #90 tabs 09/30/23 mg-hydrochlorothiazide 25 mg tablet rivaroxaban 20 mg tablet (Xarelto) 20 mg PO DAILY #90 tabs 10/03/23 bisoprolol fumarate 10 mg tablet See Rx Instructions .Route 04/13/24 .COMPLEX #90 tabs Allergies Allergy/AdvReac Type Severity Reaction Status Date / Time prednisone AdvReac migraines Verified 05/28/24 12:35 PFSH <Elisa Howard APRN - Last Filed: 07/25/24 18:39> PFS Disclaimer: The information contained in this section may have been updated after the patient was seen, as this information can be updated by other users. Medical History (Updated 07/25/24 @ 19:40 by Cassandra Keating RN) H/O flexible sigmoidoscopy Pre-op evaluation ILD (interstitial lung disease) Fibrosis of lung Cystic-bullous disease of lung Emphysema of lung History of COVID-19 Wheezing Diastolic dysfunction Arthritis [facility] current use of anticoagulant Surgical History (Updated 07/25/24 @ 19:40 by Cassandra Keating RN) Hx of colonoscopy H/O dilation and curettage History of Family History Family/Other Diabetes Stroke FHx: mental illness Hypertension Social History (Updated 07/25/24 @ 19:40 by Cassandra Keating RN) Smoking Status: Never smoker second hand exposure: No alcohol intake: never substance use type: denies use current occupational status: retired Travel in the last 8 weeks: None household members: spouse housing: house current occupational exposures/hazards: No caffeine: Yes Have you lived/traveled outside [place] in past 30 days?: No Contact w/someone who lives/traveled outside [place] past 30 days?: No Exposure to someone with infectious disease in past 14 days?: No Do you have a fever (greater than 100.4 F or 38 C)?: No Have you tested positive for COVID-19: No Exposed to someone with COVID-19 in past 14 days?: No Do you have a sore throat?: Yes Do you have a cough?: Yes Do you have any weakness?: Yes Do you have any diarrhea?: No Are you experiencing any unusual bleeding?: No Do you have any muscle aches/pain?: Yes Do you have any abdominal pain?: No Are you experiencing loss of taste or smell?: No Other Medical History Have you received the Flu Vaccine for this season: No Have you received the Pneumonia Vaccine: No <Elisa Howard APRN - Last Filed: 07/25/24 18:39> ROS Obtained: Yes Systems reviewed as appropriate & no additional complaints except as documented Physical Exam <Elisa Howard APRN - Last Filed: 07/25/24 18:39> General General appearance: alert and in no apparent distress Head Head exam: atraumatic and normocephalic Eye Eye exam: Present normal appearance and PERRL ENT ENT exam: Present normal exam Neck Neck exam: Present normal inspection Chest Chest inspection: Present normal inspection and symmetric chest wall rise; Absent tenderness Respiratory Respiratory exam: Present normal lung sounds bilaterally Cardiovascular Cardiovascular exam: Present regular rate Abdominal Exam Abdominal exam: Present soft and normal bowel sounds; Absent tenderness Extremities Exam Extremities exam: Present normal inspection and full ROM Back Exam Back exam: Present normal inspection and full ROM Neurological Exam Neurological exam: Present alert and oriented X3 Psychiatric Psychiatric exam: Present normal affect and normal mood Skin Skin exam: Present warm and dry Medical Decision Making <Elisa Howard APRN - Last Filed: 07/25/24 18:39> Medical Records Screening: Per USPSTF and CDC recommendations, given the prevalence of disease in our region, it is our hospital?s policy to screen for HIV and viral Hepatitis for all patients aged 18 and over and those with ongoing risk factors. Steffen Inquiry Pt receiving controlled substance: No Steffen was queried for this patient: No Vital Signs: 07/25/24 13:39 07/25/24 14:39 07/25/24 14:40 Temperature 99.9 F H Temperature Source Oral Pulse Rate 76 77 Pulse Rate [Left Radial] 77 Respiratory Rate 18 Blood Pressure 116/49 L 94/34 L Blood Pressure [Right Arm] 88/52 L Blood Pressure Mean Blood Pressure Mean [Right Arm] 64 02 Sat by Pulse Oximetry 93 L 94 L 94 L Oxygen Delivery Method Room Air Room Air Room Air 07/25/24 14:45 07/25/24 15:00 07/25/24 15:30 Temperature Temperature Source Pulse Rate 71 70 69 Pulse Rate [Left Radial] Respiratory Rate Blood Pressure 97/50 L 86/45 L 82/39 L Blood Pressure [Right Arm] Blood Pressure Mean Blood Pressure Mean [Right Arm] 02 Sat by Pulse Oximetry 90 L 91 L 92 L Oxygen Delivery Method Nasal Cannula Nasal Cannula Nasal Cannula 07/25/24 15:49 07/25/24 15:55 07/25/24 15:59 Temperature Temperature Source Pulse Rate 67 70 71 Pulse Rate [Left Radial] Respiratory Rate Blood Pressure 79/43 L 73/40 L 85/33 L Blood Pressure [Right Arm] Blood Pressure Mean Blood Pressure Mean [Right Arm] 02 Sat by Pulse Oximetry 95 93 L 94 L Oxygen Delivery Method Nasal Cannula Nasal Cannula Nasal Cannula 07/25/24 16:03 07/25/24 16:09 07/25/24 16:13 Temperature Temperature Source Pulse Rate 68 73 68 Pulse Rate [Left Radial] Respiratory Rate 15 16 18 Blood Pressure 93/41 L 84/35 L 127/71 Blood Pressure [Right Arm] Blood Pressure Mean 49 79 Blood Pressure Mean [Right Arm] 02 Sat by Pulse Oximetry 97 98 95 Oxygen Delivery Method Nasal Cannula 07/25/24 16:15 07/25/24 16:20 07/25/24 16:25 Temperature Temperature Source Pulse Rate 66 68 66 Pulse Rate [Left Radial] Respiratory Rate 18 18 18 Blood Pressure 109/64 L 105/74 L 106/48 L Blood Pressure [Right Arm] Blood Pressure Mean 85 83 67 Blood Pressure Mean [Right Arm] 02 Sat by Pulse Oximetry 95 95 Oxygen Delivery Method 07/25/24 16:30 07/25/24 16:35 07/25/24 16:51 Temperature Temperature Source Pulse Rate 66 66 69 Pulse Rate [Left Radial] Respiratory Rate 18 18 Blood Pressure 105/54 L 106/52 L 106/51 L Blood Pressure [Right Arm] Blood Pressure Mean 73 70 Blood Pressure Mean [Right Arm] 02 Sat by Pulse Oximetry 99 Oxygen Delivery Method Nasal Cannula 07/25/24 16:55 07/25/24 17:00 07/25/24 17:05 Temperature Temperature Source Pulse Rate 69 68 71 Pulse Rate [Left Radial] Respiratory Rate 15 15 17 Blood Pressure 112/52 L 114/65 111/64 Blood Pressure [Right Arm] Blood Pressure Mean Blood Pressure Mean [Right Arm] 02 Sat by Pulse Oximetry 95 97 96 Oxygen Delivery Method Nasal Cannula Nasal Cannula Nasal Cannula 07/25/24 17:10 07/25/24 17:15 07/25/24 17:20 Temperature Temperature Source Pulse Rate 72 70 68 Pulse Rate [Left Radial] Respiratory Rate 16 14 19 Blood Pressure 102/50 L 100/81 L 115/66 Blood Pressure [Right Arm] Blood Pressure Mean Blood Pressure Mean [Right Arm] 02 Sat by Pulse Oximetry 98 97 96 Oxygen Delivery Method Nasal Cannula Nasal Cannula Nasal Cannula 07/25/24 17:25 07/25/24 17:30 07/25/24 17:35 Temperature Temperature Source Pulse Rate 68 66 67 Pulse Rate [Left Radial] Respiratory Rate 13 15 17 Blood Pressure 93/46 L 109/62 L 113/62 Blood Pressure [Right Arm] Blood Pressure Mean Blood Pressure Mean [Right Arm] 02 Sat by Pulse Oximetry 97 98 97 Oxygen Delivery Method Nasal Cannula Nasal Cannula Nasal Cannula 07/25/24 17:40 07/25/24 17:46 07/25/24 17:50 Temperature Temperature Source Pulse Rate 70 85 75 Pulse Rate [Left Radial] Respiratory Rate 18 18 14 Blood Pressure 116/69 134/105 H 125/68 Blood Pressure [Right Arm] Blood Pressure Mean Blood Pressure Mean [Right Arm] 02 Sat by Pulse Oximetry 97 95 96 Oxygen Delivery Method Nasal Cannula Nasal Cannula Nasal Cannula 07/25/24 17:55 07/25/24 18:00 07/25/24 18:05 Temperature Temperature Source Pulse Rate 76 74 69 Pulse Rate [Left Radial] Respiratory Rate 12 14 25 H Blood Pressure 92/64 L 108/59 L 93/47 L Blood Pressure [Right Arm] Blood Pressure Mean Blood Pressure Mean [Right Arm] 02 Sat by Pulse Oximetry 93 L 92 L 93 L Oxygen Delivery Method Nasal Cannula Nasal Cannula Nasal Cannula 07/25/24 18:10 07/25/24 18:15 07/25/24 18:20 Temperature Temperature Source Pulse Rate 69 67 69 Pulse Rate [Left Radial] Respiratory Rate 18 17 24 Blood Pressure 104/59 L 107/56 L 104/56 L Blood Pressure [Right Arm] Blood Pressure Mean Blood Pressure Mean [Right Arm] 02 Sat by Pulse Oximetry 92 L 91 L 93 L Oxygen Delivery Method Nasal Cannula Nasal Cannula Nasal Cannula 07/25/24 18:25 07/25/24 18:26 07/25/24 18:30 Temperature 99.3 F Temperature Source Oral Pulse Rate 70 68 67 Pulse Rate [Left Radial] Respiratory Rate 19 19 16 Blood Pressure 129/73 129/73 107/64 L Blood Pressure [Right Arm] Blood Pressure Mean Blood Pressure Mean [Right Arm] 02 Sat by Pulse Oximetry 91 L 90 L Oxygen Delivery Method Nasal Cannula Room Air Nasal Cannula 07/25/24 18:35 07/25/24 18:40 Temperature Temperature Source Pulse Rate 71 77 Pulse Rate [Left Radial] Respiratory Rate 16 22 Blood Pressure 94/44 L 117/57 L Blood Pressure [Right Arm] Blood Pressure Mean Blood Pressure Mean [Right Arm] 02 Sat by Pulse Oximetry 90 L 92 L Oxygen Delivery Method Nasal Cannula Nasal Cannula Lab Data Lab Results 07/25/24 14:04: WBC 13.0 H, RBC 5.15, Hgb 15.3, Hct 47.1 H, MCV 91.5, MCH 29.7, MCHC 32.5, RDW 12.1, Plt Count 177, MPV 11.5 H, Neut % (Auto) 84.1 H, Lymph % (Auto) 5.9 L, [place] % (Auto) 9.6 H, Eos % (Auto) 0.0 L, Baso % (Auto) 0.2, Neut # (Auto) 10.9 H, Lymph # (Auto) 0.8, [place] # (Auto) 1.2 H, Eos # (Auto) 0.0, Baso # (Auto) 0.0, Sodium 136, Potassium 4.4, Chloride 103, Carbon Dioxide 25, Anion Gap 12.4, BUN 41 H, Creatinine 1.70 H, Estimated Creat Clear 25, Estimated GFR 30 L, Est GFR ( Amer) 36 L, Glucose 108 H, Calcium 8.0 L, Total Bilirubin 0.6, AST 47 H, ALT 26, Alkaline Phosphatase 45, Troponin I 0.03, Total Protein 6.1 L, Albumin 3.6, Globulin 2.5, Albumin/Globulin Ratio 1.4, Procalcitonin 0.177, HCV Ab MARY w/Rflx PCR Qn Negative, HIV Ag/Ab Combo Qual Negative 07/25/24 16:08: VBG pH 7.31, VBG pCO2 45.9, VBG pO2 41.3 H, VBG HCO3 22.5 L, VBG Total CO2 23.9, VBG O2 Saturation 69.8, VBG Base Excess -3.8 L, VBG Lactic Acid 1.1 07/25/24 16:47: Urine Color Yellow, Urine Appearance Clear, Urine pH 6.0, Ur Specific [place] >= 1.030, Urine Protein Negative, Urine Glucose (UA) Negative, Urine Ketones Negative, Urine Blood Negative, Urine Nitrate Negative, Urine Bilirubin Negative, Urine Urobilinogen 0.2, Ur Leukocyte Esterase Negative, Urine RBC None, Urine WBC 3-5, Ur Squamous Epith Cells 3-5, Urine Bacteria 1+ 07/25/24 18:05: Troponin I 0.03 07/25/24 14:04 07/25/24 14:04 Orders (Tests/Meds): ED MEDICATIONS Generic Name Dose Route Start Last Admin Trade Name Freq PRN Reason Stop Dose Admin Acetaminophen 650 mg 07/25/24 17:53 Acetaminophen 325mg Tab PO 08/24/24 17:52 Q4HP PRN Fever or Mild Pain (1-3) Doxycycline Hyclate 100 mg 07/25/24 21:00 Doxycycline Hycl 100 Mg Tablet PO 08/04/24 20:59 BID ISAI Enoxaparin Sodium 30 mg 07/26/24 09:00 Enoxaparin 40mg/0.4ml Syringe SUBCUT 08/25/24 08:59 DAILY ISAI Norepinephrine/Dextrose 8 mg in 250 mls @ 3.75 mls/hr 07/25/24 16:09 07/25/24 16:45 Levophed 8mg/250ml-D5w Premix IV 08/24/24 16:08 Not Given .Q24H ISAI Protocol 2 MCG/MIN Lactated Ringer's 1,000 mls @ 100 mls/hr 07/25/24 18:00 07/25/24 19:45 Lactated Ringer's 1000 Ml Bag IV 08/24/24 17:59 100 mls/hr .Q10H ISAI Administration Ceftriaxone Sodium 1 gm/ 50 mls @ 100 mls/hr 07/26/24 09:00 Sodium Chloride IV 08/05/24 08:59 Q24H ISAI Ondansetron HCl 4 mg 07/25/24 17:53 Ondansetron 4mg/2ml Vial IV 08/24/24 17:52 Q8HP PRN Nausea Sodium Chloride 10 ml 07/25/24 19:22 Sodium Chloride 0.9% 10ml Flush Syringe IV 08/24/24 19:21 NEEDED PRN Maintain IV Site Discontinued Medications Generic Name Dose Route Start Last Admin Trade Name Freq PRN Reason Stop Dose Admin Acetaminophen 650 mg 07/25/24 14:05 07/25/24 14:40 Acetaminophen 325mg Tab PO 07/25/24 14:06 650 mg ONCE ONE Administration Sodium Chloride 1,000 mls @ 999 mls/hr 07/25/24 14:32 07/25/24 14:42 Sod Chlor 0.9% 1000ml Bag IV 07/25/24 15:32 999 mls/hr .Q1H1M ONE Administration Sodium Chloride 1,000 mls @ 999 mls/hr 07/25/24 15:56 07/25/24 16:06 Sod Chlor 0.9% 1000ml Bag IV 07/25/24 16:56 999 mls/hr .Q1H1M ONE Administration Ondansetron HCl 4 mg 07/25/24 14:05 07/25/24 14:40 Ondansetron 4mg Odt SL 07/25/24 14:06 4 mg ONCE ONE Administration ORDERS Category Date Time Status CXR --portable [XR chest portable] Stat Exams 07/25/24 14:05 Completed CBC w/Auto Diff [Complete Blood Count Auto Diff] Stat Lab 07/25/24 14:04 Completed CMP [Comprehensive Metabolic Panel] Stat Lab 07/25/24 14:04 Completed CRP [C-Reactive Protein] AMLAB Lab 07/26/24 06:00 Ordered Complete Blood Count Auto Diff AMLAB Lab 07/26/24 06:00 Ordered Complete Blood Count Auto Diff AMLAB Lab 07/27/24 06:00 Ordered Complete Blood Count Auto Diff AMLAB Lab 07/28/24 06:00 Ordered Complete Blood Count Auto Diff AMLAB Lab 07/29/24 06:00 Ordered Complete Blood Count Auto Diff AMLAB Lab 07/30/24 06:00 Ordered Comprehensive Metabolic Panel AMLAB Lab 07/26/24 06:00 Ordered Comprehensive Metabolic Panel AMLAB Lab 07/27/24 06:00 Ordered Comprehensive Metabolic Panel AMLAB Lab 07/28/24 06:00 Ordered Comprehensive Metabolic Panel AMLAB Lab 07/29/24 06:00 Ordered Comprehensive Metabolic Panel AMLAB Lab 07/30/24 06:00 Ordered ESR [Erythrocyte Sedimentation Rate] AMLAB Lab 07/26/24 06:00 Ordered Free T4 (Free Thyroxine) AMLAB Lab 07/26/24 06:00 Ordered HIV Combo Stat Lab 07/25/24 14:04 Completed Hemoglobin A1C AMLAB Lab 07/26/24 06:00 Ordered Hepatitis C Ab Qual. W/ RFX Stat Lab 07/25/24 14:04 Completed Magnesium AMLAB Lab 07/26/24 06:00 Ordered Magnesium AMLAB Lab 07/27/24 06:00 Ordered Magnesium AMLAB Lab 07/28/24 06:00 Ordered Magnesium AMLAB Lab 07/29/24 06:00 Ordered Magnesium AMLAB Lab 07/30/24 06:00 Ordered Procalcitonin AMLAB Lab 07/26/24 06:00 Ordered Procalcitonin Stat Lab 07/25/24 14:04 Completed TSH [Thyroid Stimulating Hormone] AMLAB Lab 07/26/24 06:00 Ordered Trop I [Troponin I] Stat Lab 07/25/24 14:04 Completed Troponin I Q3H Lab 07/25/24 18:05 Completed Troponin I Q3H Lab 07/25/24 21:15 Ordered Urinalysis and Microscopic Stat Lab 07/25/24 16:47 Completed Blood Culture Stat Micro 07/25/24 16:20 Received VBG [Venous Blood Gas] Stat RT 07/25/24 16:08 Completed Medical Decision Narrative: In summary, patient is a 63-year-old female PMHx A-fib, HLD, HTN, interstitial lung disease who presents to the ED for shortness of breath, decreased appetite, nausea. Patient states she tested positive for influenza A this past Saturday, states she feels fatigued. She is requesting food and a diet Coke upon initial assessment. States that she has been able to keep some crackers down today. Upon initial exam, patient is alert, oriented and cooperative. Patient is hemodynamically stable. Physical exam unremarkable. Denies headache, visual changes, posterior neck pain, chest pain, abdominal pain, vomiting, dysuria Differential diagnosis includes ACS, pneumonia, pneumothorax, KENZIE, infectious process, among others. Initial workup will be conducted with hematologic labs, CXR, imaging. Initial inventions include IV fluids, Zofran and acetaminophen. During ED stay, patient's oxygen dropped to around 86%, patient was placed on 2 L nasal cannula. Patient is requiring consistent 2 L nasal cannula to maintain oxygen saturation in the 90's. Initial workup reviewed by me. Hematologic labs remarkable for WBC 13, stable H&H. CMP remarkable for BUN 41, creatinine 1.70 (previous creatinine in February 2024 was 0.90). Chest x-ray final read is atelectatic or fibrotic changes within the lung bases but no focal pneumonia. Patient remains hypotensive, MAP low 60s. Started second liter IV fluids. Due to new oxygen requirement and new KENZIE patient will be admitted to hospital medicine for further evaluation. <Ernesto Schwartz MD - Last Filed: 07/25/24 20:50> Vital Signs: 07/25/24 13:39 07/25/24 14:39 07/25/24 14:40 Temperature 99.9 F H Temperature Source Oral Pulse Rate 76 77 Pulse Rate [Left Radial] 77 Respiratory Rate 18 Blood Pressure 116/49 L 94/34 L Blood Pressure [Right Arm] 88/52 L Blood Pressure Mean Blood Pressure Mean [Right Arm] 64 02 Sat by Pulse Oximetry 93 L 94 L 94 L Oxygen Delivery Method Room Air Room Air Room Air 07/25/24 14:45 07/25/24 15:00 07/25/24 15:30 Temperature Temperature Source Pulse Rate 71 70 69 Pulse Rate [Left Radial] Respiratory Rate Blood Pressure 97/50 L 86/45 L 82/39 L Blood Pressure [Right Arm] Blood Pressure Mean Blood Pressure Mean [Right Arm] 02 Sat by Pulse Oximetry 90 L 91 L 92 L Oxygen Delivery Method Nasal Cannula Nasal Cannula Nasal Cannula 07/25/24 15:49 07/25/24 15:55 07/25/24 15:59 Temperature Temperature Source Pulse Rate 67 70 71 Pulse Rate [Left Radial] Respiratory Rate Blood Pressure 79/43 L 73/40 L 85/33 L Blood Pressure [Right Arm] Blood Pressure Mean Blood Pressure Mean [Right Arm] 02 Sat by Pulse Oximetry 95 93 L 94 L Oxygen Delivery Method Nasal Cannula Nasal Cannula Nasal Cannula 07/25/24 16:03 07/25/24 16:09 07/25/24 16:13 Temperature Temperature Source Pulse Rate 68 73 68 Pulse Rate [Left Radial] Respiratory Rate 15 16 18 Blood Pressure 93/41 L 84/35 L 127/71 Blood Pressure [Right Arm] Blood Pressure Mean 49 79 Blood Pressure Mean [Right Arm] 02 Sat by Pulse Oximetry 97 98 95 Oxygen Delivery Method Nasal Cannula 07/25/24 16:15 07/25/24 16:20 07/25/24 16:25 Temperature Temperature Source Pulse Rate 66 68 66 Pulse Rate [Left Radial] Respiratory Rate 18 18 18 Blood Pressure 109/64 L 105/74 L 106/48 L Blood Pressure [Right Arm] Blood Pressure Mean 85 83 67 Blood Pressure Mean [Right Arm] 02 Sat by Pulse Oximetry 95 95 Oxygen Delivery Method 07/25/24 16:30 07/25/24 16:35 07/25/24 16:51 Temperature Temperature Source Pulse Rate 66 66 69 Pulse Rate [Left Radial] Respiratory Rate 18 18 Blood Pressure 105/54 L 106/52 L 106/51 L Blood Pressure [Right Arm] Blood Pressure Mean 73 70 Blood Pressure Mean [Right Arm] 02 Sat by Pulse Oximetry 99 Oxygen Delivery Method Nasal Cannula 07/25/24 16:55 07/25/24 17:00 07/25/24 17:05 Temperature Temperature Source Pulse Rate 69 68 71 Pulse Rate [Left Radial] Respiratory Rate 15 15 17 Blood Pressure 112/52 L 114/65 111/64 Blood Pressure [Right Arm] Blood Pressure Mean Blood Pressure Mean [Right Arm] 02 Sat by Pulse Oximetry 95 97 96 Oxygen Delivery Method Nasal Cannula Nasal Cannula Nasal Cannula 07/25/24 17:10 07/25/24 17:15 07/25/24 17:20 Temperature Temperature Source Pulse Rate 72 70 68 Pulse Rate [Left Radial] Respiratory Rate 16 14 19 Blood Pressure 102/50 L 100/81 L 115/66 Blood Pressure [Right Arm] Blood Pressure Mean Blood Pressure Mean [Right Arm] 02 Sat by Pulse Oximetry 98 97 96 Oxygen Delivery Method Nasal Cannula Nasal Cannula Nasal Cannula 07/25/24 17:25 07/25/24 17:30 07/25/24 17:35 Temperature Temperature Source Pulse Rate 68 66 67 Pulse Rate [Left Radial] Respiratory Rate 13 15 17 Blood Pressure 93/46 L 109/62 L 113/62 Blood Pressure [Right Arm] Blood Pressure Mean Blood Pressure Mean [Right Arm] 02 Sat by Pulse Oximetry 97 98 97 Oxygen Delivery Method Nasal Cannula Nasal Cannula Nasal Cannula 07/25/24 17:40 07/25/24 17:46 07/25/24 17:50 Temperature Temperature Source Pulse Rate 70 85 75 Pulse Rate [Left Radial] Respiratory Rate 18 18 14 Blood Pressure 116/69 134/105 H 125/68 Blood Pressure [Right Arm] Blood Pressure Mean Blood Pressure Mean [Right Arm] 02 Sat by Pulse Oximetry 97 95 96 Oxygen Delivery Method Nasal Cannula Nasal Cannula Nasal Cannula 07/25/24 17:55 07/25/24 18:00 07/25/24 18:05 Temperature Temperature Source Pulse Rate 76 74 69 Pulse Rate [Left Radial] Respiratory Rate 12 14 25 H Blood Pressure 92/64 L 108/59 L 93/47 L Blood Pressure [Right Arm] Blood Pressure Mean Blood Pressure Mean [Right Arm] 02 Sat by Pulse Oximetry 93 L 92 L 93 L Oxygen Delivery Method Nasal Cannula Nasal Cannula Nasal Cannula 07/25/24 18:10 07/25/24 18:15 07/25/24 18:20 Temperature Temperature Source Pulse Rate 69 67 69 Pulse Rate [Left Radial] Respiratory Rate 18 17 24 Blood Pressure 104/59 L 107/56 L 104/56 L Blood Pressure [Right Arm] Blood Pressure Mean Blood Pressure Mean [Right Arm] 02 Sat by Pulse Oximetry 92 L 91 L 93 L Oxygen Delivery Method Nasal Cannula Nasal Cannula Nasal Cannula 07/25/24 18:25 07/25/24 18:26 07/25/24 18:30 Temperature 99.3 F Temperature Source Oral Pulse Rate 70 68 67 Pulse Rate [Left Radial] Respiratory Rate 19 19 16 Blood Pressure 129/73 129/73 107/64 L Blood Pressure [Right Arm] Blood Pressure Mean Blood Pressure Mean [Right Arm] 02 Sat by Pulse Oximetry 91 L 90 L Oxygen Delivery Method Nasal Cannula Room Air Nasal Cannula 07/25/24 18:35 07/25/24 18:40 Temperature Temperature Source Pulse Rate 71 77 Pulse Rate [Left Radial] Respiratory Rate 16 22 Blood Pressure 94/44 L 117/57 L Blood Pressure [Right Arm] Blood Pressure Mean Blood Pressure Mean [Right Arm] 02 Sat by Pulse Oximetry 90 L 92 L Oxygen Delivery Method Nasal Cannula Nasal Cannula Lab Data Lab Results 07/25/24 14:04: WBC 13.0 H, RBC 5.15, Hgb 15.3, Hct 47.1 H, MCV 91.5, MCH 29.7, MCHC 32.5, RDW 12.1, Plt Count 177, MPV 11.5 H, Neut % (Auto) 84.1 H, Lymph % (Auto) 5.9 L, [place] % (Auto) 9.6 H, Eos % (Auto) 0.0 L, Baso % (Auto) 0.2, Neut # (Auto) 10.9 H, Lymph # (Auto) 0.8, [place] # (Auto) 1.2 H, Eos # (Auto) 0.0, Baso # (Auto) 0.0, Sodium 136, Potassium 4.4, Chloride 103, Carbon Dioxide 25, Anion Gap 12.4, BUN 41 H, Creatinine 1.70 H, Estimated Creat Clear 25, Estimated GFR 30 L, Est GFR ( Amer) 36 L, Glucose 108 H, Calcium 8.0 L, Total Bilirubin 0.6, AST 47 H, ALT 26, Alkaline Phosphatase 45, Troponin I 0.03, Total Protein 6.1 L, Albumin 3.6, Globulin 2.5, Albumin/Globulin Ratio 1.4, Procalcitonin 0.177, HCV Ab MARY w/Rflx PCR Qn Negative, HIV Ag/Ab Combo Qual Negative 07/25/24 16:08: VBG pH 7.31, VBG pCO2 45.9, VBG pO2 41.3 H, VBG HCO3 22.5 L, VBG Total CO2 23.9, VBG O2 Saturation 69.8, VBG Base Excess -3.8 L, VBG Lactic Acid 1.1 07/25/24 16:47: Urine Color Yellow, Urine Appearance Clear, Urine pH 6.0, Ur Specific [place] >= 1.030, Urine Protein Negative, Urine Glucose (UA) Negative, Urine Ketones Negative, Urine Blood Negative, Urine Nitrate Negative, Urine Bilirubin Negative, Urine Urobilinogen 0.2, Ur Leukocyte Esterase Negative, Urine RBC None, Urine WBC 3-5, Ur Squamous Epith Cells 3-5, Urine Bacteria 1+ 07/25/24 18:05: Troponin I 0.03 Orders (Tests/Meds): ED MEDICATIONS Generic Name Dose Route Start Last Admin Trade Name Freq PRN Reason Stop Dose Admin Acetaminophen 650 mg 07/25/24 17:53 Acetaminophen 325mg Tab PO 08/24/24 17:52 Q4HP PRN Fever or Mild Pain (1-3) Doxycycline Hyclate 100 mg 07/25/24 21:00 Doxycycline Hycl 100 Mg Tablet PO 08/04/24 20:59 BID ISAI Enoxaparin Sodium 30 mg 07/26/24 09:00 Enoxaparin 40mg/0.4ml Syringe SUBCUT 08/25/24 08:59 DAILY ISAI Norepinephrine/Dextrose 8 mg in 250 mls @ 3.75 mls/hr 07/25/24 16:09 07/25/24 16:45 Levophed 8mg/250ml-D5w Premix IV 08/24/24 16:08 Not Given .Q24H ISAI Protocol 2 MCG/MIN Lactated Ringer's 1,000 mls @ 100 mls/hr 07/25/24 18:00 07/25/24 19:45 Lactated Ringer's 1000 Ml Bag IV 08/24/24 17:59 100 mls/hr .Q10H ISAI Administration Ceftriaxone Sodium 1 gm/ 50 mls @ 100 mls/hr 07/26/24 09:00 Sodium Chloride IV 08/05/24 08:59 Q24H ISAI Ondansetron HCl 4 mg 07/25/24 17:53 Ondansetron 4mg/2ml Vial IV 08/24/24 17:52 Q8HP PRN Nausea Sodium Chloride 10 ml 07/25/24 19:22 Sodium Chloride 0.9% 10ml Flush Syringe IV 08/24/24 19:21 NEEDED PRN Maintain IV Site Discontinued Medications Generic Name Dose Route Start Last Admin Trade Name Freq PRN Reason Stop Dose Admin Acetaminophen 650 mg 07/25/24 14:05 07/25/24 14:40 Acetaminophen 325mg Tab PO 07/25/24 14:06 650 mg ONCE ONE Administration Sodium Chloride 1,000 mls @ 999 mls/hr 07/25/24 14:32 07/25/24 14:42 Sod Chlor 0.9% 1000ml Bag IV 07/25/24 15:32 999 mls/hr .Q1H1M ONE Administration Sodium Chloride 1,000 mls @ 999 mls/hr 07/25/24 15:56 07/25/24 16:06 Sod Chlor 0.9% 1000ml Bag IV 07/25/24 16:56 999 mls/hr .Q1H1M ONE Administration Ondansetron HCl 4 mg 07/25/24 14:05 07/25/24 14:40 Ondansetron 4mg Odt SL 07/25/24 14:06 4 mg ONCE ONE Administration ORDERS Category Date Time Status CXR --portable [XR chest portable] Stat Exams 07/25/24 14:05 Completed CBC w/Auto Diff [Complete Blood Count Auto Diff] Stat Lab 07/25/24 14:04 Completed CMP [Comprehensive Metabolic Panel] Stat Lab 07/25/24 14:04 Completed CRP [C-Reactive Protein] AML[facility] Lab 07/26/24 06:00 Ordered Complete Blood Count Auto Diff [facility] Lab 07/26/24 06:00 Ordered Complete Blood Count Auto Diff [facility] Lab 07/27/24 06:00 Ordered Complete Blood Count Auto Diff [facility] Lab 07/28/24 06:00 Ordered Complete Blood Count Auto Diff [facility] Lab 07/29/24 06:00 Ordered Complete Blood Count Auto Diff [facility] Lab 07/30/24 06:00 Ordered Comprehensive Metabolic Panel [facility] Lab 07/26/24 06:00 Ordered Comprehensive Metabolic Panel [facility] Lab 07/27/24 06:00 Ordered Comprehensive Metabolic Panel [facility] Lab 07/28/24 06:00 Ordered Comprehensive Metabolic Panel [facility] Lab 07/29/24 06:00 Ordered Comprehensive Metabolic Panel [facility] Lab 07/30/24 06:00 Ordered ESR [Erythrocyte Sedimentation Rate] [facility] Lab 07/26/24 06:00 Ordered Free T4 (Free Thyroxine) [facility] Lab 07/26/24 06:00 Ordered HIV Combo Stat Lab 07/25/24 14:04 Completed Hemoglobin A1C [facility] Lab 07/26/24 06:00 Ordered Hepatitis C Ab Qual. W/ RFX Stat Lab 07/25/24 14:04 Completed Magnesium [facility] Lab 07/26/24 06:00 Ordered Magnesium [facility] Lab 07/27/24 06:00 Ordered Magnesium [facility] Lab 07/28/24 06:00 Ordered Magnesium [facility] Lab 07/29/24 06:00 Ordered Magnesium [facility] Lab 07/30/24 06:00 Ordered Procalcitonin [facility] Lab 07/26/24 06:00 Ordered Procalcitonin Stat Lab 07/25/24 14:04 Completed TSH [Thyroid Stimulating Hormone] [facility] Lab 07/26/24 06:00 Ordered Trop I [Troponin I] Stat Lab 07/25/24 14:04 Completed Troponin I Q3H Lab 07/25/24 18:05 Completed Troponin I Q3H Lab 07/25/24 21:15 Ordered Urinalysis and Microscopic Stat Lab 07/25/24 16:47 Completed Blood Culture Stat Micro 07/25/24 16:20 Received VBG [Venous Blood Gas] Stat RT 07/25/24 16:08 Completed ECG Data Tracing #1: I reviewed this ECG and interpreted as documented below: Normal sinus rhythm. No ST elevations or depressions. Ventricular rate 68 bpm QTc 420, ME interval normal at 156. Medical Decision Narrative: In summary, patient is a 63-year-old female PMHx A-fib, HLD, HTN, interstitial lung disease who presents to the ED for shortness of breath, decreased appetite, nausea. Patient states she tested positive for influenza A this past Saturday, states she feels fatigued. She is requesting food and a diet Coke upon initial assessment. States that she has been able to keep some crackers down today. Upon initial exam, patient is alert, oriented and cooperative. Patient is hemodynamically stable. Physical exam unremarkable. Denies headache, visual changes, posterior neck pain, chest pain, abdominal pain, vomiting, dysuria Differential diagnosis includes ACS, pneumonia, pneumothorax, KENZIE, infectious process, among others. Initial workup will be conducted with hematologic labs, CXR, imaging. Initial inventions include IV fluids, Zofran and acetaminophen. During ED stay, patient's oxygen dropped to around 86%, patient was placed on 2 L nasal cannula. Patient is requiring consistent 2 L nasal cannula to maintain oxygen saturation in the 90's. Initial workup reviewed by me. Hematologic labs remarkable for WBC 13, stable H&H. CMP remarkable for BUN 41, creatinine 1.70 (previous creatinine in February 2024 was 0.90). Chest x-ray final read is atelectatic or fibrotic changes within the lung bases but no focal pneumonia. Patient remains hypotensive, MAP low 60s. Started second liter IV fluids. Due to new oxygen requirement and new KENZIE patient will be admitted to hospital medicine for further evaluation. I was consulted by the RENE, and we discussed the complexity of the problems being addressed. I approve the treatment and management plan for this patient's care in the emergency department, thus performing a substantive portion of the medical decision making. Ernesto Schwartz MD Critical Care <Elisa Howard, [employer] TR[employer]ER - Last Filed: 07/25/24 18:39> Critical Care Time Critical Care Time: No
--- NOTE | 2024-07-25 14:05 | XR_ITS ---
PROCEDURE INFORMATION: Exam: XR Chest Exam date and time: 07/25/2024 2:12 PM Age: 63 years old Clinical indication: Shortness of breath; Additional info: SOA TECHNIQUE: Imaging protocol: Radiologic exam of the chest. Views: 1 view. Total images: 1 COMPARISON: CT HR CHEST X3 02/27/2024 2:30 PM FINDINGS: Lungs: Atelectatic and/or fibrotic changes noted within the lung bases. No focal pneumonia. Pleural spaces: Unremarkable. No pleural effusion. No pneumothorax. Heart/Mediastinum: The heart is not enlarged. Bones/joints: Rightward curvature of the thoracic spine with degenerative changes. IMPRESSION: 1. Atelectatic and/or fibrotic changes noted within the lung bases. 2. No focal pneumonia.
[2024-07-25 14:32] LABS: Basophils % 0.2 % (0.1-2.0); Hematocrit 47.1 % (37.0-47.0); Hemoglobin 15.3 g/dL (12.2-16.2); Lymphocytes # 0.8 K/mm3 (0.7-4.5); Lymphocytes % 5.9 % (10-50); Mean Corpuscular HGB Conc 32.5 g/dL (31.8-35.4); Mean Corpuscular Hemoglobin 29.7 pg (27.0-31.2); Mean Corpuscular Volume 91.5 fl (81-99); Mean Platelet Volume 11.5 fl (7.4-10.4); Monocytes # 1.2 K/mm3 (0.1-1.0); Monocytes % 9.6 % (1.7-9.3); Neutrophils # 10.9 K/mm3 (1.8-7.8); Neutrophils % 84.1 % (37.0-80.0); Platelet Count 177 K/mm3 (142-424); Red Blood Count 5.15 M/mm3 (4.20-5.40); Red Cell Distribution Width 12.1 % (11.5-17.5)
[2024-07-25 14:40] LABS: Alanine Aminotransferase 26 U/L (12-78); Albumin Level 3.6 g/dl (3.5-5.0); Albumin/Globulin Ratio 1.4 (1.1-1.8); Alkaline Phosphatase 45 U/L (38-126); Anion Gap 12.4 mEq/L (5-15); Aspartate Amino Transferase 47 U/L (14-36); Bilirubin,Total 0.6 mg/dl (0.2-1.3); Blood Urea Nitrogen 41 mg/dl (7-17); Carbon Dioxide 25 mmol/L (22.0-30.0); Chloride 103 mmol/L (98-107); Creatinine Clearance Estimated 25 mL/min (50-200); Estimated Glomerular Filt Rate 30 ml/min (>60); GFR (African American) 36 ML/MIN (>60); Globulin 2.5 g/dL (1.3-3.2); Glucose 108 mg/dl (74-100); Potassium 4.4 mmoL/L (3.5-5.1); Sodium 136 mmol/L (136-145); Total Protein,Serum 6.1 g/dl (6.3-8.2)
[2024-07-25] MEDS: ONDANSETRON 4MG ODT 4 MG SL (14:40)
[2024-07-25] MEDS: ACETAMINOPHEN 325MG TAB 650 MG PO (14:40)
[2024-07-25] MEDS: 0.9 % SODIUM CHLORIDE 1000ML 1,000 ML 999 ML IV ×2 (14:42→16:06)
--- NOTE | 2024-07-25 15:18 | ECG_ITS ---
APPROVED REPORT Exam: Resting ECG HR:68 bpm ECG Measurements Heart Rate 68 AXES PA 156 P 59 QRSd 81 QRS 7 QT 408 T 57 QTc 425 Conclusion SINUS RHYTHM POSSIBLE LEFT ATRIAL ENLARGEMENT [-0.1mV P-WAVE IN V1/V2] LOW QRS VOLTAGE IN PRECORDIAL LEADS [QRS DEFLECTION < 1.0 mV IN CHEST LEADS] BORDERLINE ECG UNCONFIRMED REPORT NSR. No ST elevation or depression. QTc 425. Electronically signed by : ZAID FLYNN, 07/25/2024 21:01:06
[2024-07-25 15:46] LABS: Troponin I 0.03 ng/ml (0.00-0.034)
--- NOTE | 2024-07-25 15:48 | PC.NURSE ---
pt placed on 2 L NC, RA of 85, recovered to 95 on 2 L NC
[2024-07-25 16:14] LABS: HIV Combo NEGATIVE (Negative)
[2024-07-25 16:22] LABS: Hepatitis C Ab Qual. W/ RFX NEGATIVE (Negative)
[2024-07-25 16:25] LABS: Lactate Venous 1.1 mmol/L (0.4-2.0); VBG Base Excess -3.8 mmol/L (-2.4-2.3); VBG HCO3 22.5 mmol/L (23-30); VBG Oxygen Saturation 69.8 % (50-70); VBG PCO2 45.9 mmol/L (35-51); VBG PH 7.31 mmol/L (7.31-7.41); VBG PO2 41.3 mmol/L (28-40); VBG Total CO2 23.9 mmol/L (23-27)
--- NOTE | 2024-07-25 16:28 | PC.NURSE ---
per Mamta PA, hold levophed at this time
--- NOTE | 2024-07-25 16:52 | PC.NURSE ---
PT back from restroom urine sample sent at this time
[2024-07-25 16:56] LABS: Microscopic, Urine URINE MICROSCOPIC (MICROSCOPIC)
[2024-07-25 16:57] LABS: Appearance,Urine CLEAR (Clear); Bilirubin,Urine Negative (Negative); Blood, Urine Negative (Negative); Color,Urine YELLOW (Yellow); Glucose,Urine (UA) Negative (Negative); Ketones,Urine Negative (Negative); Leukocyte Esterase,Urine Negative (Negative); Nitrate,Urine Negative (Negative); Protein,Urine Negative (Negative); Specific Gravity, Urine >= 1.030 (1.005-1.030); Urobilinogen,Urine 0.2 EU/dl (0.2)
[2024-07-25 17:09] LABS: Bacteria,Urine 1+ /lpf
--- NOTE | 2024-07-25 17:52 | P.HP_ITS ---
History of Present Illness *Admission Date: 07/25/24 *Reason for visit:: Flu, generalized weakness *History of present illness: Bettina Persaud is a 63-year-old female with a medical history significant for A- fib, rheumatoid arthritis interstitial lung disease, hypertension who presents with flu, generalized weakness, and shortness of breath. She states she tested positive for the flu on 07/21 around which she began experiencing flulike symptoms, cough,. However she states her generalized weakness, shortness of breath have gotten worse over the past few days. Denies chest pain, abdominal pain. He does note that her cough has gotten better, but has become a bit more yellow-tinged. Workup in the ED significant for WBC 13.0, reassuring VBG, creatinine 1.7 (baseline 0.9). CXR slightly suggestive of right lower lobe pneumonia. On arrival, patient was hypotensive 88/52 and required 2 L fluid resuscitation. Currently 106/47. Case discussed with ED provider and decision was made to admit patient for generalized weakness, KENZIE, decreased oral tolerance, and pneumonia. [facility] Disclaimer: The information contained in this section may have been updated after the patient was seen, as this information can be updated by other users. 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 Surgical History (Updated 07/25/24 @ 19:40 by Cassandra Keating RN) Hx of colonoscopy H/O dilation and curettage History of Family History Family/Other Diabetes Stroke FHx: mental illness Hypertension Social History (Updated 07/25/24 @ 19:40 by Cassandra Keating RN) Smoking Status: Never smoker second hand exposure: No alcohol intake: never substance use type: denies use current occupational status: retired Travel in the last 8 weeks: None household members: spouse housing: house current occupational exposures/hazards: No caffeine: Yes Have you lived/traveled outside [place] in past 30 days?: No Contact w/someone who lives/traveled outside [place] past 30 days?: No Exposure to someone with infectious disease in past 14 days?: No Do you have a fever (greater than 100.4 F or 38 C)?: No Have you tested positive for COVID-19: No Exposed to someone with COVID-19 in past 14 days?: No Do you have a sore throat?: Yes Do you have a cough?: Yes Do you have any weakness?: Yes Do you have any diarrhea?: No Are you experiencing any unusual bleeding?: No Do you have any muscle aches/pain?: Yes Do you have any abdominal pain?: No Are you experiencing loss of taste or smell?: No Other Medical History Have you received the Flu Vaccine for this season: No Have you received the Pneumonia Vaccine: No Meds Home Medications and Allergies Home Medications ?Medication ?Instructions ?Recorded ?Confirmed ?Type hydroxychloroquine 200 mg tablet 200 mg PO DAILY 08/27/17 07/25/24 History lisinopril 20 1 tab PO DAILY #90 tabs 09/30/23 07/25/24 Rx mg-hydrochlorothiazide 25 mg tablet rivaroxaban 20 mg tablet (Xarelto) 20 mg PO DAILY #90 tabs 10/03/23 07/25/24 Rx bisoprolol fumarate 10 mg tablet See Rx Instructions .Route 04/13/24 07/25/24 Rx .COMPLEX #90 tabs atorvastatin 20 mg tablet 20 mg PO DAILY 07/25/24 07/25/24 History New Prescriptions to Start Prescriptions: Allergies Allergy/AdvReac Type Severity Reaction Status Date / Time prednisone AdvReac migraines Verified 05/28/24 12:35 Exam Data for Last 24 hours Vital signs and Labs for Last 24 Hours: Temp Pulse Resp BP Pulse Ox O2 Del Method 99.9 F H 70 18 116/69 97 Room Air 07/25/24 13:39 07/25/24 17:40 07/25/24 17:40 07/25/24 17:40 07/25/24 17:40 07/25/24 17:40 Laboratory Results - last 24 hr 07/25/24 14:04: WBC 13.0 H, RBC 5.15, Hgb 15.3, Hct 47.1 H, MCV 91.5, MCH 29.7, MCHC 32.5, RDW 12.1, Plt Count 177, MPV 11.5 H, Neut % (Auto) 84.1 H, Lymph % (Auto) 5.9 L, [place] % (Auto) 9.6 H, Eos % (Auto) 0.0 L, Baso % (Auto) 0.2, Neut # (Auto) 10.9 H, Lymph # (Auto) 0.8, Dougherty # (Auto) 1.2 H, Eos # (Auto) 0.0, Baso # (Auto) 0.0, Sodium 136, Potassium 4.4, Chloride 103, Carbon Dioxide 25, Anion Gap 12.4, BUN 41 H, Creatinine 1.70 H, Estimated Creat Clear 25, Estimated GFR 30 L, Est GFR ( Amer) 36 L, Glucose 108 H, Calcium 8.0 L, Total Bilirubin 0.6, AST 47 H, ALT 26, Alkaline Phosphatase 45, Troponin I 0.03, Total Protein 6.1 L, Albumin 3.6, Globulin 2.5, Albumin/Globulin Ratio 1.4, HCV Ab MARY w/Rflx PCR Qn Negative, HIV Ag/Ab Combo Qual Negative 07/25/24 16:08: VBG pH 7.31, VBG pCO2 45.9, VBG pO2 41.3 H, VBG HCO3 22.5 L, VBG Total CO2 23.9, VBG O2 Saturation 69.8, VBG Base Excess -3.8 L, VBG Lactic Acid 1.1 07/25/24 16:47: Urine Color Yellow, Urine Appearance Clear, Urine pH 6.0, Ur Specific [place] >= 1.030, Urine Protein Negative, Urine Glucose (UA) Negative, Urine Ketones Negative, Urine Blood Negative, Urine Nitrate Negative, Urine Bili ny Negative, Urine Urobilinogen 0.2, Ur Leukocyte Esterase Negative, Urine RBC None, Urine WBC 3-5, Ur Squamous Epith Cells 3-5, Urine Bacteria 1+ I & O for Last 24 hours: Intake & Output 07/22/24 07/23/24 07/24/24 07/25/24 23:59 23:59 23:59 23:59 Weight 120.202 kg Constitutional Constitutional: no acute distress and obese *Routine HEENT Exam Head: Present normocephalic Eye: Present EOMI and PERRL ENT: Present mucous membranes moist *Routine Neck Exam Neck: Present supple; Absent lymphadenopathy *Routine Respiratory Exam Respiratory: Present CTA bilaterally *Routine Cardiovascular Exam Cardiovascular: Present RRR *Routine Abdominal Exam Abdominal: Present soft and normoactive bowel sounds; Absent tenderness *Routine Rectal Exam Rectal:: deferred *Routine Genitalia Exam Genitalia:: deferred *Routine Extremities Exam Extremities: Absent cyanosis, clubbing or edema *Routine Skin Exam Skin: Present warm; Absent rash *Routine Neurological Exam Neurological: Present alert and oriented X3 Assessment and Plan *Assessment and plan (1) Influenza: Status: Acute Category: Medical Code(s): J11.1 - Influenza due to unidentified influenza virus with other respiratory manifestations Plan Bettina Persaud is a 63-year-old female with a medical history significant for A- fib, rheumatoid arthritis interstitial lung disease, hypertension who presents with flu, generalized weakness, and shortness of breath. She states she tested positive for the flu on 07/21 around which she began experiencing flulike symptoms, cough,. However she states her generalized weakness, shortness of breath have gotten worse over the past few days. Denies chest pain, abdominal pain. He does note that her cough has gotten better, but has become a bit more yellow-tinged. Workup in the ED significant for WBC 13.0, reassuring VBG, creatinine 1.7 (baseline 0.9). CXR slightly suggestive of right lower lobe pneumonia. On arrival, patient was hypotensive 88/52 and required 2 L fluid resuscitation. Currently 106/47. Case discussed with ED provider and decision was made to admit patient for generalized weakness, KENZIE, decreased oral tolerance, and pneumonia. #Acute viral syndrome #Community-acquired pneumonia #Influenza #Dehydration #Hypotension #KENZIE ? Flulike symptoms since the beginning of the week, but now having yellow productive cough. ? CXR slightly suggestive of right lower lobe pneumonia. On room air. ? Initial creatinine 1.7, baseline 0.9. ? Required 2 L of fluid resuscitation for hypotension which has resolved. ? Ceftriaxone, doxycycline day 1. ? Continue IV NS at 75 L/h. ? Zofran as needed for nausea. ? Follow-up full respiratory panel to evaluate other viruses. #A-fib ? Currently rate controlled. ? Resume home medications once reconciled. #Rheumatoid arthritis related interstitial lung disease ? Currently stable. ? Resume home hydroxychloroquine once reconciled. #Hypertension ? Hold home BP meds given initial hypotension. #GERD ? Started Protonix 40 mg. Full code DVT prophylaxis: Lovenox 30 mg
--- NOTE | 2024-07-25 17:53 | PC.NURSE ---
pt sitting on side of bed eating, oxygen sat 97, pt placed on RA for oxygen trial
--- NOTE | 2024-07-25 18:15 | PC.NURSE ---
house notified of admission to hospitalist for lyndsay and new oxygen requirement
--- NOTE | 2024-07-25 18:30 | PC.NURSE ---
report called to Madeline
[2024-07-25 18:38] LABS: Troponin I 0.03 ng/ml (0.00-0.034)
--- NOTE | 2024-07-25 18:54 | PC.NURSE ---
arrived by w/c from ED
[2024-07-25 19:36] LABS: Procalcitonin 0.177 ng/mL (0.0-2.0)
[2024-07-25] MEDS: LACTATED RINGERS 1000ML 1,000 ML 100 ML IV (19:45)
[2024-07-25] MEDS: DOXYCYCLINE HYCL 100 MG TABLET PO (20:55)
[2024-07-25] MEDS: PANTOPRAZOLE 40MG TABLET 40 MG PO (21:36)
[2024-07-25 22:05] LABS: Adenovirus,PCR Not Detected (NotDetected); Bordetella Pertussis Not Detected (NotDetected); Chlamydophila Pneumoniae, PCR Not Detected (NotDetected); Coronavirus 19, PCR Not Detected (NotDetected); Coronavirus 229E Not Detected (NotDetected); Coronavirus NL63 Not Detected (NotDetected); Coronavirus OC43 Not Detected (NotDetected); Coronovirus HKU1,PCR Not Detected (NotDetected); Human Metapneumovirus Not Detected (NotDetected); Influenza A, PCR Not Detected (NotDetected); Influenza AH1, 2009 Not Detected (NotDetected); Influenza AH1, PCR Not Detected (NotDetected); Influenza AH3,PCR Not Detected (NotDetected); Influenza B, PCR Not Detected (NotDetected); Mycoplasma Pneumoniae, PCR Not Detected (NotDetected); Parainfluenza 1, PCR Not Detected (NotDetected); Parainfluenza 2, PCR Not Detected (NotDetected); Parainfluenza 3, PCR Not Detected (NotDetected); Parainfluenza 4, PCR Not Detected (NotDetected); Respiratory Syncytial Virus Not Detected (NotDetected); Rhinovirus/Enterovirus Not Detected (NotDetected)
[2024-07-25 22:07] LABS: Troponin I 0.03 ng/ml (0.00-0.034)
[2024-07-26] VITALS: BP 105/55; PULSE 121; RESP 16; TEMP 37.6; O2SAT 93
[2024-07-26] MEDS: CALCIUM CARBONATE 500MG CHEWTAB 500 MG PO (00:10)
[2024-07-26 03:39] VITALS: BP 91/57; PULSE 95; RESP 17; TEMP 37.9; O2SAT 92; BMI 45.0
[2024-07-26] MEDS: ACETAMINOPHEN 325MG TAB 650 MG PO (03:45)
--- NOTE | 2024-07-26 03:46 | PC.NURSE ---
Ms Bettina Persaud was admitted during the previous shift on behalf of flu-like symptoms, an acute kidney injury + dehydration, and hypotension. Admission assessment and home medication reconciliation was completed during this shift by me. She was observed to have eyes closed, respirations even and unlabored, and no apparent distress for the majority of the night. She reported having an intermittent cough with occasional sputum production. Patient also reports having a poor appetite since the onset of her symptoms. She has complained of sporadic body aches and heartburn this shift. Her temperature had increased overnight as well (peak fever at 03:39, it was 100.2). An order for Tums was obtained and given for her indigestion per JUL. Tylenol was administered for her fever + body aches per JUL. Lactated Ringers are currently infusing at 100 mL/hr. Fine crackles were heard in her right lung (lower lobes) with diminished but clear sounds heard in the left; heart and bowel sounds were within normal findings upon auscultation. She states that her bowel movements have been regular. Blood pressures have remained hypotensive this shift. Oxygen saturations remain > 90% on room air. She has been ambulating independently in her room/to the bathroom without any difficulties. She has drank Diet Pepsi and [place]urel Shannon this shift. At this time, the patient is resting in bed without any further complaints. Tylenol administration for fever to be reevaluated per JUL. Call light within reach. Droplet precautions in place.
[2024-07-26 04:15] VITALS: TEMP 36.9
[2024-07-26] MEDS: LACTATED RINGERS 1000ML 1,000 ML 100 ML IV (06:30)
[2024-07-26 07:25] LABS: Basophils % 0.2 % (0.1-2.0); Hematocrit 42.1 % (37.0-47.0); Lymphocytes # 1.2 K/mm3 (0.7-4.5); Lymphocytes % 13.9 % (10-50); Mean Corpuscular HGB Conc 32.3 g/dL (31.8-35.4); Mean Corpuscular Hemoglobin 29.5 pg (27.0-31.2); Mean Corpuscular Volume 91.3 fl (81-99); Mean Platelet Volume 11.1 fl (7.4-10.4); Monocytes # 0.9 K/mm3 (0.1-1.0); Neutrophils # 6.4 K/mm3 (1.8-7.8); Neutrophils % 74.8 % (37.0-80.0); Platelet Count 138 K/mm3 (142-424); Red Blood Count 4.61 M/mm3 (4.20-5.40); Red Cell Distribution Width 12.3 % (11.5-17.5); White Blood Count 8.5 K/mm3 (4.8-10.8)
[2024-07-26 07:34] LABS: Alanine Aminotransferase 24 U/L (12-78); Albumin/Globulin Ratio 1.4 (1.1-1.8); Alkaline Phosphatase 44 U/L (38-126); Anion Gap 7.9 mEq/L (5-15); Aspartate Amino Transferase 45 U/L (14-36); Bilirubin,Total 0.5 mg/dl (0.2-1.3); Blood Urea Nitrogen 26 mg/dl (7-17); Calcium 7.7 mg/dl (8.4-10.2); Carbon Dioxide 24 mmol/L (22.0-30.0); Chloride 109 mmol/L (98-107); Creatinine Clearance Estimated 48 mL/min (50-200); Estimated Glomerular Filt Rate 63 ml/min (>60); GFR (African American) 76 ML/MIN (>60); Globulin 2.2 g/dL (1.3-3.2); Glucose 110 mg/dl (74-100); Magnesium 1.7 mg/dl (1.6-2.3); Potassium 3.9 mmoL/L (3.5-5.1); Sodium 137 mmol/L (136-145); Total Protein,Serum 5.2 g/dl (6.3-8.2)
[2024-07-26 07:39] LABS: C-Reactive Protein 79.5 mg/L (0-4)
[2024-07-26 07:51] LABS: Procalcitonin 0.103 ng/mL (0.0-2.0)
[2024-07-26 07:54] LABS: Hemoglobin 13.7 g/dL (12.2-16.2)
[2024-07-26 08:00] VITALS: BP 101/46; PULSE 61; RESP 16; TEMP 36.9; O2SAT 92
[2024-07-26 08:05] LABS: Thyroid Stimulating Hormone 1.17 uIU/mL (0.465-4.68)
[2024-07-26] MEDS: DOXYCYCLINE HYCL 100 MG TABLET PO (08:34)
[2024-07-26] MEDS: CEFTRIAXONE 1 GM 1 GM in 0.9 % SODIUM CHLORIDE 50 ML IV (08:34)
[2024-07-26] MEDS: ENOXAPARIN 30MG/0.3ML SYRINGE 30 MG SUBCUT (08:34)
--- NOTE | 2024-07-26 08:38 | HMH.PHAINT1 ---
Pharmacy Intervention Comments: MEDICATION RECONCILIATION COMPLETED ON PATIENT USING EXTERNAL FILL HISTORY FROM PHARMACY AND LIST FROM CARDIOLOGY OFFICE. -ABISAI WOLF, THORD
[2024-07-26 08:41] LABS: Erythrocyte Sedimentation Rate 23 mm/hr (0-30)
--- NOTE | 2024-07-26 10:28 | EXP.DC.SUM ---
General Admission date:: 07/25/24 HPI HPI HPI: Bettina Persaud is a 63-year-old female with a medical history significant for A-fib, rheumatoid arthritis interstitial lung disease, hypertension who presents with flu, generalized weakness, and shortness of breath. She states she tested positive for the flu on 07/21 around which she began experiencing flulike symptoms, cough,. However she states her generalized weakness, shortness of breath have gotten worse over the past few days. Denies chest pain, abdominal pain. He does note that her cough has gotten better, but has become a bit more yellow-tinged. Workup in the ED significant for WBC 13.0, reassuring VBG, creatinine 1.7 (baseline 0.9). CXR slightly suggestive of right lower lobe pneumonia. On arrival, patient was hypotensive 88/52 and required 2 L fluid resuscitation. Currently 106/47. Case discussed with ED provider and decision was made to admit patient for generalized weakness, KENZIE, decreased oral tolerance, and pneumonia. Hospital Course Hospital Course Hospital Course: Bettina Persaud is a 63-year-old female with a medical history significant for A-fib, rheumatoid arthritis interstitial lung disease, hypertension who presents with flu, generalized weakness, and shortness of breath. She states she tested positive for the flu on 07/21 around which she began experiencing flulike symptoms, cough,. However she states her generalized weakness, shortness of breath have gotten worse over the past few days. Denies chest pain, abdominal pain. He does note that her cough has gotten better, but has become a bit more yellow-tinged. Workup in the ED significant for WBC 13.0, reassuring VBG, creatinine 1.7 (baseline 0.9). CXR slightly suggestive of right lower lobe pneumonia. On arrival, patient was hypotensive 88/52 and required 2 L fluid resuscitation. Currently 106/47. Case discussed with ED provider and decision was made to admit patient for generalized weakness, KENZIE, decreased oral tolerance, and pneumonia. #Acute viral syndrome #Community-acquired pneumonia #Influenza #Dehydration #Hypotension #KENZIE ? Flulike symptoms since the beginning of the week, but now having yellow productive cough. ? CXR suggestive of mild right lower lobe pneumonia. On room air. Respiratory panel negative admission. ? Initial creatinine 1.7, improved to 0.9. Initial WBC 13. ? Required 2 L of fluid resuscitation for hypotension which has resolved. ? Clinically improved with ceftriaxone, doxycycline, IV fluid resuscitation. ? Discharged with cefdinir, doxycycline for 4 more days. On room air. #A-fib ? Currently rate controlled. Resume home regimen. #Rheumatoid arthritis related interstitial lung disease ? Currently stable. ? Resume home hydroxychloroquine once reconciled. #Hypertension ? Resume home regimen #GERD ? Started Protonix 40 mg. Exam Data for Last 24 hours Vital signs and Labs for Last 24 Hours: Temp Pulse Resp BP Pulse Ox O2 Del Method 98.4 F 61 16 101/46 L 92 L Room Air 07/26/24 08:00 07/26/24 08:00 07/26/24 08:00 07/26/24 08:00 07/26/24 08:00 07/26/24 09:00 Laboratory Results - last 24 hr 07/25/24 14:04: WBC 13.0 H, RBC 5.15, Hgb 15.3, Hct 47.1 H, MCV 91.5, MCH 29.7, MCHC 32.5, RDW 12.1, Plt Count 177, MPV 11.5 H, Neut % (Auto) 84.1 H, Lymph % (Auto) 5.9 L, [place] % (Auto) 9.6 H, Eos % (Auto) 0.0 L, Baso % (Auto) 0.2, Neut # (Auto) 10.9 H, Lymph # (Auto) 0.8, [place] # (Auto) 1.2 H, Eos # (Auto) 0.0, Baso # (Auto) 0.0, Sodium 136, Potassium 4.4, Chloride 103, Carbon Dioxide 25, Anion Gap 12.4, BUN 41 H, Creatinine 1.70 H, Estimated Creat Clear 25, Estimated GFR 30 L, Est GFR ( Amer) 36 L, Glucose 108 H, Calcium 8.0 L, Total Bilirubin 0.6, AST 47 H, ALT 26, Alkaline Phosphatase 45, Troponin I 0.03, Total Protein 6.1 L, Albumin 3.6, Globulin 2.5, Albumin/Globulin Ratio 1.4, Procalcitonin 0.177, HCV Ab MARY w/Rflx PCR Qn Negative, HIV Ag/Ab Combo Qual Negative 07/25/24 16:08: VBG pH 7.31, VBG pCO2 45.9, VBG pO2 41.3 H, VBG HCO3 22.5 L, VBG Total CO2 23.9, VBG O2 Saturation 69.8, VBG Base Excess -3.8 L, VBG Lactic Acid 1.1 07/25/24 16:47: Urine Color Yellow, Urine Appearance Clear, Urine pH 6.0, Ur Specific [place] >= 1.030, Urine Protein Negative, Urine Glucose (UA) Negative, Urine Ketones Negative, Urine Blood Negative, Urine Nitrate Negative, Urine Bilirubin Negative, Urine Urobilinogen 0.2, Ur Leukocyte Esterase Negative, Urine RBC None, Urine WBC 3-5, Ur Squamous Epith Cells 3-5, Urine Bacteria 1+ 07/25/24 18:05: Troponin I 0.03 07/25/24 21:35: Troponin I 0.03 07/25/24 21:39: Chlamy pneumoniae PCR Not detected, Adenovirus (PCR) Not detected, B. pertussis DNA (PCR) Not detected, Coronavirus OC43 (PCR) Not detected, Coronavirus HKU1 (PCR) Not detected, Coronavirus 229E (PCR) Not detected, SARS-CoV-2 (PCR) Not detected, Coronavirus NL63 (PCR) Not detected, Human Metapneumovir PCR Not detected, Influenza A (H1) PCR Not detected, Influ A (H1N1/09) PCR Not detected, Influenza A (H3) PCR Not detected, Influenza Type A (PCR) Not detected, Influenza Type B (PCR) Not detected, M. pneumoniae (PCR) Not detected, Parainfluenza 1 (PCR) Not detected, Parainfluenza 2 (PCR) Not detected, Parainfluenza 3 (PCR) Not detected, Parainfluenza 4 (PCR) Not detected, RSV (PCR) Not detected, Entero/Rhino (PCR) Not detected 07/26/24 07:13: WBC 8.5 D, RBC 4.61, Hgb 13.7 D, Hct 42.1, MCV 91.3, MCH 29.5, MCHC 32.3, RDW 12.3, Plt Count 138 L, MPV 11.1 H, Neut % (Auto) 74.8, Lymph % (Auto) 13.9, [place] % (Auto) 11.0 H, Eos % (Auto) 0.0 L, Baso % (Auto) 0.2, Neut # (Auto) 6.4, Lymph # (Auto) 1.2, [place] # (Auto) 0.9, Eos # (Auto) 0.0, Baso # (Auto) 0.0, ESR 23, Sodium 137, Potassium 3.9, Chloride 109 H, Carbon Dioxide 24, Anion Gap 7.9, BUN 26 H D, Creatinine 0.90 D, Estimated Creat Clear 48, Estimated GFR 63, Est GFR ( Amer) 76 D, Glucose 110 H, Calcium 7.7 L, Magnesium 1.7, Total Bilirubin 0.5, AST 45 H, ALT 24, Alkaline Phosphatase 44, C-Reactive Protein 79.5 H, Total Protein 5.2 L, Albumin 3.0 L D, Globulin 2.2, Albumin/Globulin Ratio 1.4, Procalcitonin 0.103, TSH 1.17 I & O for Last 24 hours: Intake & Output 07/23/24 07/24/24 07/25/24 07/26/24 23:59 23:59 23:59 23:59 Intake Total 1481 / 1481 Output Total 0 / 0 Balance 1481 / 1481 Weight 123.921 kg 122.606 kg Constitutional Constitutional: no acute distress *Routine HEENT Exam Head: Present normocephalic Eye: Present EOMI and PERRL ENT: Present mucous membranes moist *Routine Neck Exam Neck: Present supple; Absent lymphadenopathy *Routine Respiratory Exam Respiratory: Present CTA bilaterally *Routine Cardiovascular Exam Cardiovascular: Present RRR *Routine Abdominal Exam Abdominal: Present soft and normoactive bowel sounds; Absent tenderness *Routine Extremities Exam Extremities: Absent cyanosis, clubbing or edema *Routine Skin Exam Skin: Present warm; Absent rash *Routine Neurological Exam Neurological: Present alert and oriented X3 Results Data Completed and Pending Labs on day of discharge: Labs from last 24 hours 07/26/24 07/25/24 07/25/24 07:13 21:39 21:35 WBC 8.5 D RBC 4.61 Hgb 13.7 D Hct 42.1 MCV 91.3 MCH 29.5 MCHC 32.3 RDW 12.3 Plt Count 138 L MPV 11.1 H Neut % (Auto) 74.8 Lymph % (Auto) 13.9 [place] % (Auto) 11.0 H Eos % (Auto) 0.0 L Baso % (Auto) 0.2 Neut # (Auto) 6.4 Lymph # (Auto) 1.2 [place] # (Auto) 0.9 Eos # (Auto) 0.0 Baso # (Auto) 0.0 ESR 23 VBG pH VBG pCO2 VBG pO2 VBG HCO3 VBG Total CO2 VBG O2 Saturation VBG Base Excess VBG Lactic Acid Sodium 137 Potassium 3.9 Chloride 109 H Carbon Dioxide 24 Anion Gap 7.9 BUN 26 H D Creatinine 0.90 D Estimated Creat Clear 48 Estimated GFR 63 Est GFR ( Amer) 76 D Glucose 110 H Calcium 7.7 L Magnesium 1.7 Total Bilirubin 0.5 AST 45 H ALT 24 Alkaline Phosphatase 44 Troponin I 0.03 C-Reactive Protein 79.5 H Total Protein 5.2 L Albumin 3.0 L D Globulin 2.2 Albumin/Globulin Ratio 1.4 Procalcitonin 0.103 TSH 1.17 Urine Color Urine Appearance Urine pH Ur Specific [place] Urine Protein Urine Glucose (UA) Urine Ketones Urine Blood Urine Nitrate Urine Bilirubin Urine Urobilinogen Ur Leukocyte Esterase Urine RBC Urine WBC Ur Squamous Epith Cells Urine Bacteria Chlamy pneumoniae PCR Not detected Adenovirus (PCR) Not detected B. pertussis DNA (PCR) Not detected Coronavirus OC43 (PCR) Not detected Coronavirus HKU1 (PCR) Not detected Coronavirus 229E (PCR) Not detected SARS-CoV-2 (PCR) Not detected Coronavirus NL63 (PCR) Not detected HCV Ab MARY w/Rflx PCR Qn HIV Ag/Ab Combo Qual Human Metapneumovir PCR Not detected Influenza A (H1) PCR Not detected Influ A (H1N1/09) PCR Not detected Influenza A (H3) PCR Not detected Influenza Type A (PCR) Not detected Influenza Type B (PCR) Not detected M. pneumoniae (PCR) Not detected Parainfluenza 1 (PCR) Not detected Parainfluenza 2 (PCR) Not detected Parainfluenza 3 (PCR) Not detected Parainfluenza 4 (PCR) Not detected RSV (PCR) Not detected Entero/Rhino (PCR) Not detected 07/25/24 07/25/24 07/25/24 18:05 16:47 16:08 WBC RBC Hgb Hct MCV MCH MCHC RDW Plt Count MPV Neut % (Auto) Lymph % (Auto) [place] % (Auto) Eos % (Auto) Baso % (Auto) Neut # (Auto) Lymph # (Auto) [place] # (Auto) Eos # (Auto) Baso # (Auto) ESR VBG pH 7.31 VBG pCO2 45.9 VBG pO2 41.3 H VBG HCO3 22.5 L VBG Total CO2 23.9 VBG O2 Saturation 69.8 VBG Base Excess -3.8 L VBG Lactic Acid 1.1 Sodium Potassium Chloride Carbon Dioxide Anion Gap BUN Creatinine Estimated Creat Clear Estimated GFR Est GFR ( Amer) Glucose Calcium Magnesium Total Bilirubin AST ALT Alkaline Phosphatase Troponin I 0.03 C-Reactive Protein Total Protein Albumin Globulin Albumin/Globulin Ratio Procalcitonin TSH Urine Color Yellow Urine Appearance Clear Urine pH 6.0 Ur Specific [place] >= 1.030 Urine Protein Negative Urine Glucose (UA) Negative Urine Ketones Negative Urine Blood Negative Urine Nitrate Negative Urine Bilirubin Negative Urine Urobilinogen 0.2 Ur Leukocyte Esterase Negative Urine RBC None Urine WBC 3-5 Ur Squamous Epith Cells 3-5 Urine Bacteria 1+ Chlamy pneumoniae PCR Adenovirus (PCR) B. pertussis DNA (PCR) Coronavirus OC43 (PCR) Coronavirus HKU1 (PCR) Coronavirus 229E (PCR) SARS-CoV-2 (PCR) Coronavirus NL63 (PCR) HCV Ab MARY w/Rflx PCR Qn HIV Ag/Ab Combo Qual Human Metapneumovir PCR Influenza A (H1) PCR Influ A (H1N1/09) PCR Influenza A (H3) PCR Influenza Type A (PCR) Influenza Type B (PCR) M. pneumoniae (PCR) Parainfluenza 1 (PCR) Parainfluenza 2 (PCR) Parainfluenza 3 (PCR) Parainfluenza 4 (PCR) RSV (PCR) Entero/Rhino (PCR) 07/25/24 14:04 WBC 13.0 H RBC 5.15 Hgb 15.3 Hct 47.1 H MCV 91.5 MCH 29.7 MCHC 32.5 RDW 12.1 Plt Count 177 MPV 11.5 H Neut % (Auto) 84.1 H Lymph % (Auto) 5.9 L [place] % (Auto) 9.6 H Eos % (Auto) 0.0 L Baso % (Auto) 0.2 Neut # (Auto) 10.9 H Lymph # (Auto) 0.8 [place] # (Auto) 1.2 H Eos # (Auto) 0.0 Baso # (Auto) 0.0 ESR VBG pH VBG pCO2 VBG pO2 VBG HCO3 VBG Total CO2 VBG O2 Saturation VBG Base Excess VBG Lactic Acid Sodium 136 Potassium 4.4 Chloride 103 Carbon Dioxide 25 Anion Gap 12.4 BUN 41 H Creatinine 1.70 H Estimated Creat Clear 25 Estimated GFR 30 L Est GFR ( Amer) 36 L Glucose 108 H Calcium 8.0 L Magnesium Total Bilirubin 0.6 AST 47 H ALT 26 Alkaline Phosphatase 45 Troponin I 0.03 C-Reactive Protein Total Protein 6.1 L Albumin 3.6 Globulin 2.5 Albumin/Globulin Ratio 1.4 Procalcitonin 0.177 TSH Urine Color Urine Appearance Urine pH Ur Specific [place] Urine Protein Urine Glucose (UA) Urine Ketones Urine Blood Urine Nitrate Urine Bilirubin Urine Urobilinogen Ur Leukocyte Esterase Urine RBC Urine WBC Ur Squamous Epith Cells Urine Bacteria Chlamy pneumoniae PCR Adenovirus (PCR) B. pertussis DNA (PCR) Coronavirus OC43 (PCR) Coronavirus HKU1 (PCR) Coronavirus 229E (PCR) SARS-CoV-2 (PCR) Coronavirus NL63 (PCR) HCV Ab MARY w/Rflx PCR Qn Negative HIV Ag/Ab Combo Qual Negative Human Metapneumovir PCR Influenza A (H1) PCR Influ A (H1N1/09) PCR Influenza A (H3) PCR Influenza Type A (PCR) Influenza Type B (PCR) M. pneumoniae (PCR) Parainfluenza 1 (PCR) Parainfluenza 2 (PCR) Parainfluenza 3 (PCR) Parainfluenza 4 (PCR) RSV (PCR) Entero/Rhino (PCR) DS: Diagnosis Discharge Diagnosis (1) Influenza: Status: Acute Code(s): J11.1 - Influenza due to unidentified influenza virus with other respiratory manifestations Meds Home Medications and Allergies Home Medications ?Medication ?Instructions ?Recorded ?Confirmed ?Type hydroxychloroquine 200 mg tablet 200 mg PO DAILY 08/27/17 07/25/24 History lisinopril 20 1 tab PO DAILY #90 tabs 09/30/23 07/25/24 Rx mg-hydrochlorothiazide 25 mg tablet atorvastatin 20 mg tablet 20 mg PO HS 07/25/24 07/26/24 History albuterol sulfate 90 mcg/actuation 1 puff inhalation Q4HP PRN 07/26/24 07/26/24 History aerosol inhaler Shortness Of Breath bisoprolol fumarate 10 mg tablet 10 mg PO DAILY 07/26/24 07/26/24 History cefdinir 300 mg capsule 300 mg PO BID 4 days #8 caps 07/26/24 Rx doxycycline monohydrate 100 mg 100 mg PO BID 4 days #8 caps 07/26/24 Rx capsule pantoprazole 40 mg tablet,delayed 40 mg PO DAILY 30 days #30 tabs 07/26/24 Rx release rivaroxaban 20 mg tablet (Xarelto) 20 mg PO QPMWITHMEAL 07/26/24 07/26/24 History New Prescriptions to Start Prescriptions: cefdinir Leonides[place]ala,Marino doxycycline monohydrate Chan,Marino pantoprazole Chan,Marino Allergies Allergy/AdvReac Type Severity Reaction Status Date / Time prednisone AdvReac migraines Verified 05/28/24 12:35 Discharge Plan Disposition Patient Disposition: Home, Self-Care Condition: Fair Follow up Plan Follow up with: Nyla Kidd APRN [Primary Care Provider] - 07/29/24 (please call for appointment) Prescriptions/Medication Reconciliation: New pantoprazole 40 mg Tablet,Delayed Release (Dr/Ec) 40 mg PO DAILY 30 Days Qty: 30 0RF Rx Instructions: Take on empty stomach. cefdinir 300 mg capsule 300 mg PO BID 4 Days Qty: 8 0RF doxycycline monohydrate 100 mg capsule 100 mg PO BID 4 Days Qty: 8 0RF Continued hydroxychloroquine 200 mg tablet 200 mg PO DAILY atorvastatin 20 mg tablet 20 mg PO HS albuterol sulfate 90 mcg/actuation HFA aerosol inhaler 1 puff INHALATION Q4HP PRN (Reason: Shortness Of Breath) Patient Comments: inhale 1 puff every 4 hours 15 days Xarelto 20 mg tablet 20 mg PO QPMWITHMEAL Rx Instructions: administer with evening meal Held lisinopril-hydrochlorothiazide 20-25 mg tablet 1 tab PO DAILY Qty: 90 3RF Hold Instructions: Resume on 08/12/24. Your blood pressures have been stable without this medication. Please talk to your PCP before restarting this medication. bisoprolol fumarate 10 mg tablet 10 mg PO DAILY Hold Instructions: Resume on 08/02/24. Your blood pressures have been stable without this medication. Please talk to your PCP before restarting this medication. Problem Reconciliation Problems Reviewed?: Yes Patient Discharge Instructions Patient Instructions: Influenza, Dehydration, Acute Kidney Injury, DI for Hypotension Print Language: Sami Providers Primary Care Provider: Nyla Kidd Admit Provider: Marino Giles Attending Provider: Marino Giles
[2024-07-26 11:17] LABS: Hemoglobin A1C 5.2 % (4.0-6.0)
[2024-07-26 11:29] LABS: Free T4 (Free Thyroxine) 1.93 ng/dl (0.78-2.19)
--- NOTE | 2024-07-27 11:50 | SW/DCPLANNER ---
Spoke with patient on the phone. Patient stated that she has been sleeping alot. Patient stated that her is going to picker and packer her new medicine and that she will call and schedule her follow up appointment. Patient stated that she has no concerns or questions at this time. Jp Grimaldo
== END 2024-07-26 11:21 | disposition home or self-care (01) ==
LOC: ER 18:03 → 2ND 18:21
PROVIDERS: Emergency Medicine; Nurse Practitioner; Admitting Provider Student in an Organized Health Care Education/Training Program; Emergency Provider Student in an Organized Health Care Education/Training Program; PCP Nurse Practitioner; Visit Provider Student in an Organized Health Care Education/Training Program
DX: J11.00 Influenza due to unidentified influenza virus with unspecified type of pneumonia (principal); I48.91 Unspecified atrial fibrillation; I10 Essential (primary) hypertension; J18.9 Pneumonia, unspecified organism; E86.0 Dehydration; N17.9 Acute kidney failure, unspecified; Z79.01 Long term (current) use of anticoagulants; Z79.899 Other long term (current) drug therapy; Z86.16 Personal history of COVID-19; M05.10 Rheumatoid lung disease with rheumatoid arthritis of unspecified site; I95.9 Hypotension, unspecified
CPT/HCPCS: 36415; 71045; 80053; 81001; 82803; 83036; 83735; 84145; 84439; 84443; 84484; 85025; 85651; 86140; 86803; 87040; 87389; 87633; 93005; 99285; G0378; J0696; J1650; J7030; J7120; Q0162

== ENCOUNTER 2024-09-15 14:13 | Outpatient (CLI) | payer BC, MEDICARE, SELFPAY ==
--- OUTSIDE RECORDS SUMMARY | 2024-09-15 14:15 | XMS_ITS ---
Author Organization Unknown Allergies, Adverse Reactions and Alerts Date IsAllergic OnsetDate Allergen Reaction Type Severity Chava rgyCode Legacyallergictoid ReactionCode ReactionCodeSystemID 06/16 00:00 :00 1 PredniSON E MIGRAINE [id number] 06/15 00:00 :00 1 PredniSON E MIGRAINE [id number] 01/21 00:00 :00 1 PredniSON E MIGRAINE [id number] 08/28 00:00 :00 1 PredniSON E MIGRAINE [id number] 08/24 00:00 :00 1 PredniSON E MIGRAINE [id number] 08/20 00:00 :00 1 PredniSON E MIGRAINE [id number] 02/23 00:00 :00 1 PredniSON E MIGRAINE [id number] 02/23 00:00 :00 1 PredniSON E MIGRAINE [id number] 09/01 00:00 :00 1 PredniSON E MIGRAINE [id number] 08/30 00:00 :00 1 PredniSON E MIGRAINE [id number]
--- NOTE | 2024-09-15 14:16 | XR_ITS ---
FINAL REPORT CLINICAL HISTORY: Right knee pain x several yrs, no known trauma COMPARISON: 02/23/2022 FINDINGS: RIGHT KNEE Three views demonstrate no acute fracture or dislocation. There are mild hypertrophic changes at the lateral joint margin. There is sharpening of the tibial spines. Small osteophytes are noted along the undersurface of the patella. No acute soft tissue abnormality is seen. IMPRESSION: Hypertrophic changes of osteoarthritis of the lateral compartment and patellofemoral joint space. Reviewed, Interpreted and Dictated by Leonel Fletcher MD Transcribed by Sandra Acosta Authenticated and . [facility]
== END 2024-09-15 23:59 | disposition home or self-care (01) ==
LOC: RAD 14:14
PROVIDERS: PCP Nurse Practitioner; Visit Provider Nurse Practitioner
DX: M25.561 Pain in right knee (principal); M17.11 Unilateral primary osteoarthritis, right knee; M25.761 Osteophyte, right knee
CPT/HCPCS: 73562

== ENCOUNTER 2024-09-22 09:45 | Outpatient (CLI) | payer BC, MEDICARE, SELFPAY ==
[2024-09-22] MEDS: ALBUTEROL 0.083% 2.5 MG/3 ML NEB IH (10:26)
== END 2024-09-22 23:59 | disposition home or self-care (01) ==
LOC: RT 09:46
PROVIDERS: PCP Nurse Practitioner; Visit Provider Internal Medicine Pulmonary Disease
DX: R06.02 Shortness of breath (principal)
CPT/HCPCS: 94010; 94618; J7613

== ENCOUNTER 2024-12-28 10:02 | Outpatient (CLI) | payer MEDICARE, SELFPAY ==
--- OUTSIDE RECORDS SUMMARY | 2024-12-28 10:05 | XMS_ITS | Clinical Summary ---
Author Organization [facility] Address [address] [place] [address] Care Team Providers Care Carpet Cutter Name Role Phone Elida Ortiz APRN Primary Care Provider + [phone] Allergies Active Allergy Reactions Criticality Noted Date Comments Prednisone Headache Low 06/16/2024 Medications hydroxychloroqu ine (PLAQUENIL) 200 MG tablet take One tablet daily for rheumatoid arthritis 90 tablet 1 5 Active bisoprolol (ZEBeta) 10 MG tablet Take 1 tablet by mouth Daily. 5 Active Cholecalciferol 250 MCG (92343 UT) capsule Take 10,000 Units by mouth Daily. Active hydroCHLOROthia zide (MICROZIDE) 12.5 MG capsule Take 1 capsule by mouth Daily. Active Xarelto 20 MG tablet TAKE 1 TABLET(20 MG) orally daily; administer with evening meal 5 Active acetaminophen (TYLENOL) 650 MG 8 hr tablet Take 1 tablet by mouth Every 8 (Eight) Hours As Needed for Mild Pain. Active Active Problems Problem Noted Date Diagnosed Date Rheumatoid arthritis with positive rheumatoid fa ctor 10/08/2024 Assessment & Plan (10/14/2024 11:31 AM EDT): +RF 63; daughter Lucrecia Cueva with rheumatoid arthritis was unable to close hands for over a year Plaquenil start November 24, 2015 prior Methotrexate started February 06, 2016 -11.9.16 (no help). Low disease activity. Swollen joint count 0. Tender joint count 0 Continue Plaquenil which is effective for her. No side effects. Tolerating well. Yearly eye exam on Plaquenil remain stable. Recommend avoiding NSAID as she is taking Xarelto for atrial fibrillation. Request recent note from pulmonology Dr. Carrizales. She reports scarring in the lungs. Continue labs for monitoring every 6 months Follow up in 6 months High risk medication use 10/08/2024 Primary osteoarthritis involving multiple joints 10/08/2024 Assessment & Plan (10/14/2024 11:31 AM EDT): Knees, hands Intermittent right knee pain with activity. She does not feel it is bad enough to warrant injection. She can call if she changes her mind. Continue Tylenol Arthritis and topical therapies PRN Encourage weight loss and weight bearing exercise Avoid NSAIDs on Xarelto Atrial fibrillation 10/08/2024 Assessment & Plan (10/14/2024 10:29 AM EDT): Chronically anticoagulated on Xarelto Encounters Date Type Department Care Team Description 10/15/2024 Results Follow-Up [facility] [address] [phone] Alfredo Banks, STATE H[employer]ICAL SOCIETY DIRECTOR 10/14/2024 11:30 AM EDT Lab [facility] [place] [address] [facility] [address] [place] [address] Rheumatoid arthritis with positive rheumatoid factor, involving unspecified site; Encounter for long-term (current) use of high-risk medication 10/14/2024 11:15 AM EDT Office Visit [facility] [address] [place] [phone] Alfredo Banks, STATE HISTORICAL SOCIETY DIRECTOR Rheumatoid arthritis with positive rheumatoid factor, involving unspecified site (Primary Dx); Encounter for long-term (current) use of high-risk medication; Primary osteoarthritis involving multiple joints; Atrial fibrillation, unspecified type; Postmenopause 10/14/[address] [facility] [address] [phone] Alfredo Banks, STATE HISTORICAL SOCIETY DIRECTOR 10/14/2024 Travel 10/01/[address] [facility] [address] [phone] Morteza Samaniego MD from Last 3 Months Family History Medical History Relation Name Comments Hypertension Brother Diabetes type II Father Hypertension Father Stroke Father Stroke Maternal Grandfather Bronchiolitis Maternal Grandmother Diabetes Mother Hypertension Mother Diabetes type II Other Heart attack Paternal Grandfather Relation Name Status Comments Brother Father Maternal Grandfather Maternal Grandmother Mother Other Paternal Grandfather Social History Tobacco Use Types Packs/Day Years Used Date Smoking Tobacco: Never Smokeless Tobacco: Never Tobacco Cessation:Counseling Given: Not Answered Alcohol Use Standard Drinks/Week Comments Not Currently 0 (1 standard drink = 0.6 oz pur e alcohol) Comments Unknown Sex and Gender Information Value Date Recorded Sex Assigned at Not on file Legal Sex Female 3:40 PM EDT Gender Identity Not on file Sexual Orientation Not on file Last Filed Vital Signs Vital Sign Reading Time Taken Comments Blood Pressure 128/70 10/14/2024 10:03 AM EDT Pulse 67 10/14/2024 10:03 AM EDT Temperature 36.3 C (97.3 F) 10/14/2024 10:03 AM EDT Respiratory Rate - - Oxygen Saturation - - Inhaled Oxygen Concentration - - Weight 120 kg (264 lb) 10/14/2024 10:03 AM EDT Height 154.9 cm (5' 1 ) 10/14/2024 10:03 AM EDT Body Mass Index 49.88 10/14/2024 10:03 AM EDT Plan of Treatment Upcoming Encounters Date Type Department Care Team (Late st Contact Info) Description 04/16/2025 10:00 AM EST Office Visit [facility] [address] [phone] Morteza Samaniego MD [address] [phone] Health Maintenance Due Date Last Done Comments DXA SCAN 1958 TDAP/TD VACCINES (1 - Tdap) 1977 MAMMOGRAM 1998 COL[address]UARD 07/30/2003 CT COLONOGRAPHY 07/30/2003 FECAL OCCULT BLOOD TEST 07/30/2003 FIT Testing (1 year) 07/30/2003 Pneumococcal Vaccine 50+ (1 of 1 - PCV) 2008 ZOSTER VACCINE (1 of 2) 2008 COVID-19 Vaccine ( - season) 2024 05/11/2021, 08/25/2020, 07/28/2020 ANNUAL WELLNESS VISIT 03/23/2024 HEPATITIS C SCREENING 03/23/2024 INFLUENZA VACCINE 02/24/2025 06/08/2023 COLON CANCER SCREENING 5 YEA R SIGMOIDOSCOPY 07/13/2029 07/13/2024 COLONOSCOPY 10/12/2034 10/12/2024, 10/12/2024 COLORECTAL CANCER SCREENING 10/12/2034 Procedures Procedure Name Priority Date/Time Associated Diagnosis Comments CBC (NO DIFF) Routine 10/14/2024 10:35 AM EDT Rheumatoid arthritis with positive rheumatoid factor, involving unspecified site Encounter for long-term (current) use of high-risk medication SEDIMENTATION RATE Routine 10/14/2024 10 :35 AM EDT Rheumatoid arthritis with positive rheumatoid factor, involving unspecified site Encounter for long-term (current) use of high-risk medication C-REACTIVE PROTEIN Routine 10/14/2024 10 :35 AM EDT Rheumatoid arthritis with positive rheumatoid factor, involving unspecified site Encounter for long-term (current) use of high-risk medication COMPREHENSIVE METABOLIC PANEL Routine 10/14/2024 10:35 AM EDT Rheumatoid arthritis with positive rheumatoid factor, involving unspecified site Encounter for long-term (current) use of high-risk medication from Last 3 Months Results * Sedimentation Rate (10/14/2024 10:35 AM EDT) Sed Rate 25 0 - 30 mm/hr 10/14/2024 11:14 PM EDT [facility] Blood Venipuncture / Unknown 10/14/2024 10:35 AM EDT 10/14/2024 10:35 AM EDT us Alfredo Banks APRN LAB BLOOD ORDERABLES Final Res ult [facility]
[address] [place] [address], * CBC (No Diff) (10/14/2024 10:35 AM EDT) WBC 5.93 3.40 - 10.80 10*3/mm3 10/14/2024 11:06 PM EDT [facility] RBC 5.10 3.77 - 5.28 10*6/mm3 10/14/2024 11:06 PM EDT [facility] Hemoglobin 14.8 12.0 - 15.9 g/dL 10/14/2024 11:06 PM EDT [facility] Hematocrit 44.2 34.0 - 46.6 % 10/14/2024 11:06 PM EDT [facility] MCV 86.7 79.0 - 97.0 fL 10/14/2024 11:06 PM EDT [facility] MCH 29.0 26.6 - 33.0 pg 10/14/2024 11:06 PM EDT [facility] MCHC 33.5 31.5 - 35.7 g/dL 10/14/2024 11:06 PM EDT [facility] RDW 12.8 12.3 - 15.4 % 10/14/2024 11:06 PM EDT [facility] RDW-SD 39.8 37.0 - 54.0 fl 10/14/2024 11:06 PM EDT [facility] MPV 11.1 6.0 - 12.0 fL 10/14/2024 11:06 PM EDT [facility] Platelets 211 140 - 450 10*3/mm3 10/14/2024 11:06 PM EDT [facility] Blood Venipuncture / Unknown 10/14/2024 10:35 AM EDT 10/14/2024 10:35 AM EDT us Alfredo Banks APRN LAB BLOOD ORDERABLES Final Res ult [facility]
[address] [place] [address], * (ABNORMAL) C-reactive Protein (10/14/2024 10:35 AM EDT) C-Reactive Protein 0.96(H) 0.00 - 0.50 mg/dL 10/15/2024 12:18 AM EDT [facility] Blood Venipuncture / Unknown 10/14/2024 10:35 AM EDT 10/14/2024 10:35 AM EDT Alfredo Banks APRN LAB BLOOD ORDERABLES Final Res ult Performing Organization Address [facility] Co de Phone Number [facility]
[address] [place] [address], * Comprehensive Metabolic Panel (10/14/2024 10:35 AM EDT) [facility] Glucose 98 65 - 99 mg/dL 10/15/2024 12:18 AM EDT [facility] BUN 16 8 - 23 mg/dL 10/15/2024 12:18 AM EDT [facility] Creatinine 0.86 0.57 - 1.00 mg/dL 10/15/2024 12:18 AM EDT [facility] Sodium 144 136 - 145 mmol/L 10/15/2024 12:18 AM EDT [facility] Potassium 4.0 3.5 - 5.2 mmol/L 10/15/2024 12:18 AM EDT [facility] Chloride 105 98 - 107 mmol/L 10/15/2024 12:18 AM EDT [facility] CO2 24.2 22.0 - 29.0 mmol/L 10/15/2024 12:18 AM EDT [facility] Calcium 9.3 8.6 - 10.5 mg/dL 10/15/2024 12:18 AM EDT [facility] Total Protein 7.1 6.0 - 8.5 g/dL 10/15/2024 12:18 AM [facility] Albumin 4.1 3.5 - 5.2 g/dL 10/15/2024 12:18 AM [facility] ALT (SGPT) 14 1 - 33 U/L 10/15/2024 12:18 AM [facility] AST (SGOT) 26 1 - 32 U/L 10/15/2024 12:18 AM [facility] Alkaline Phosphatase 70 39 - 117 U/L 10/15/2024 12:18 AM [facility] Total Bilirubin 0.7 0.0 - 1.2 mg/dL 10/15/2024 12:18 AM [facility] Globulin 3.0 gm/dL 10/15/2024 12:18 AM [facility] A/G Ratio 1.4 g/dL 10/15/2024 12:18 AM [facility] BUN/Creatinine Ratio 18.6 7.0 - 25.0 10/15/2024 12:18 AM [facility] Anion Gap 14.8 5.0 - 15.0 mmol/L 10/15/2024 12:18 AM [facility] eGFR 74.6 >60.0 mL/min/1.7 3 10/15/2024 12:18 AM [facility] Blood Venipuncture / Unknown 10/14/2024 10:35 AM EDT 10/14/2024 10:35 AM [facility] - 10/15/2024 12:18 AM T GFR Categories in Chronic Kidney Disease (CKD) GFR Category GFR (mL/min/1.73) Interpretation G1 90 or greater Normal or high (1) G2 60-89 Mild decrease (1) G3a 45-59 Mild to moderate decrease G3b 30-44 Moderate to severe decrease G4 15-29 Severe decrease G5 14 or less Kidney failure (1)In the absence of evidence of kidney disease, neither GFR category G1 or G2 fulfill the criteria for CKD. eGFR calculation 2020 CKD-EPI creatinine equation, which does not include race as a factor us Alfredo Banks APRN LAB BLOOD ORDERABLES Final Res ult [facility]
[address] [place] [address], [place] [phone] from Last 3 Months Insurance [employer] PPO Care Teams Carpet Cutter Relationship Specialty Start Date End Date Elida Ortiz APRN [address] [facility] [address] [facility] [address] [place] [address] PCP - General Internal Medicine 06/23/24
--- OUTSIDE RECORDS SUMMARY | 2024-12-28 10:05 | XMS_ITS | Encounter Summary ---
Author Organization [facility] Address [address] [place] [address] Care Team Providers Care Marine Rigger Name Role Phone Elida Ortiz APRN Primary Care Provider + [phone] Encounter Details Date Type Department Care Team ([facility] Contact Info) Description 10/15/2024 Results Follow-Up [facility] [address] [place] [phone] Alfredo Banks APRN [address] [phone] Social History Tobacco Use Types Packs/Day Years Used Date Smoking Tobacco: Never Smokeless Tobacco: Never Alcohol Use Standard Drinks/Week Comments Not Currently 0 (1 standard drink = 0.6 oz pur e alcohol) Comments Unknown Sex and Gender Information Value Date Recorded Sex Assigned at Not on file Legal Sex Female 3:40 PM EDT Gender Identity Not on file Sexual Orientation Not on file documented as of this encounter Plan of Treatment Upcoming Encounters Date Type Department Care Team (Late Contact Info) Description 04/16/2025 10:00 AM EST Office Visit [facility] [address] [place] [phone] Morteza Samaniego MD [address] [phone] documented as of this encounter Visit Diagnoses Not on filedocumented in this encounter Care Teams Marine Rigger Relationship Specialty Start Date End Date Elida Ortiz APRN [address] [phone] PCP - General Internal Medicine 06/23/24 documented as of this encounter
--- OUTSIDE RECORDS SUMMARY | 2024-12-28 10:05 | XMS_ITS | Clinical Summary ---
Author Organization Healthcare Address [address] [place] [address] Care Team Providers Care Form Press Operator Name Role Phone Elida Ortiz APRN Primary Care Provider [phone] Allergies Active Allergy Reactions Criticality Noted Date Comments Prednisone Headache Low 06/16/2024 Medications lisinopril-hydr oCHLOROthiazide 20-25 MG tablet Take 1 tablet by mouth daily. 4 Active Xarelto 20 MG tablet TAKE 1 TABLET(20 MG) orally daily; administer with evening meal 5 Active bisoprolol (Zebeta) 10 MG tablet Take 1 tablet by mouth daily. 4 Active hydroxychloroqu ine (Plaquenil) 200 MG tablet take One tablet daily for rheumatoid arthritis 4 Active atorvastatin (Lipitor) 20 MG tablet Take 1 tablet (20 mg) by mouth daily. Active cholecalciferol (Vitamin D-3) 250 MCG (06864 UT) capsule Take 1 capsule by mouth daily. Active hydroCHLOROthia zide (Microzide) 12.5 MG capsule Take 1 capsule by mouth daily. Active acetaminophen (Tylenol 8 Hour) 650 MG ER tablet Take 1 tablet by mouth every 8 hours as needed. Active albuterol 108 (90 Base) MCG/ACT inhaler inhale 1 puff every 4 hours 15 days 5 Active cefdinir (Omnicef) 300 MG capsule take 1 capsule(300 mg) orally twice a day for 4 days 5 Active doxycycline (Monodox) 100 MG capsule take 1 capsule(100 mg) orally twice a day for 4 days 5 Active HYDROcodone Bit-homatropine MBr (Hycodan) 5-1.5 MG/5ML solution take 5 mL( 1 teaspoonful) Orally every 6 hours for 7 days Active Encounters Date Type Department Care Team Description 10/20/2024 9:45 AM EDT Office Visit [facility] [address] [place] [phone] Leonel Potts MD Malignant neoplasm of sigmoid colon (CMS/HCC) (Primary Dx) 10/20/2024 7:17 AM EDT - 10/20/2024 11:59 PM EDT Hospital Encounter [facility] [address] [place] [phone] Malignant neoplasm of sigmoid colon (CMS/HCC) Discharge Disposition: Home or Self Care 10/20/2024 Travel 10/12/2024 8:10 AM EDT Anesthesia Event [facility] [address] [place] [phone] Ata Samuels MD Hackett, Michael D, ORE CRUSHER 10/12/2024 6:46 AM EDT - 10/12/2024 11:59 PM EDT Hospital Encounter [facility] [address] [place] [phone] Leonel Potts MD Doll, Nicolas Hackett, Michael D, ORE CRUSHER Malignant neoplasm of sigmoid colon (CMS/HCC) Discharge Disposition: Home or Self Care 10/12/2024 Travel from Last 3 Months Social History Tobacco Use Types Packs/Day Years Used Date Smoking Tobacco: Never Smokeless Tobacco: Never Tobacco Cessation:Counseling Given: Not Answered PHQ-2 Answer Date Recorded Patient Health Questionnaire-2 Score 0 10/20/2024 Comments No Sex and Gender Information Value Date Recorded Sex Assigned at Not on file Legal Sex Female 4:07 PM EDT Gender Identity Not on file Sexual Orientation Not on file Last Filed Vital Signs Vital Sign Reading Time Taken Comments Blood Pressure 161/75 10/20/2024 9:29 AM EDT Pulse 62 10/20/2024 9:29 AM EDT Temperature 36.8 C (98.2 F) 10/20/2024 9:29 AM EDT Respiratory Rate 16 10/20/2024 9:29 AM EDT Oxygen Saturation 96% 10/20/2024 9:29 AM EDT Inhaled Oxygen Concentration - - Weight 122 kg (269 lb 13.5 oz) 10/20/2024 9:29 A M EDT Height 154.9 cm (5' 1 ) 10/20/2024 9:29 AM EDT Body Mass Index 50.99 10/20/2024 9:29 AM EDT Plan of Treatment Upcoming Encounters Date Type Department Care Team (Late st Contact Info) Description 04/05/2025 8:50 AM EST Appointment [facility] [address] [place] [phone] Leonel Potts MD [address] [place] [phone] 04/05/2025 11:20 AM EST Appointment [facility] [address] [place] [phone] Health Maintenance Due Date Last Done Comments [facility]-Bone Density Scan 1958 [facility]-Hepatitis C Screening 1960 [facility]-Medicare Annual Wellness (AWV) 1960 [facility]-Infant/Child/Adol SDOH Screenings 1958 [facility]- SDOH Screenings 1976 [facility]-Adult SDOH Screenings 1976 [facility]-DTaP,Tdap,and Td Vaccine s (1 - Tdap) 1977 [facility]-Pneumococcal Vaccine: 50 + Years (1 of 2 - PCV) 1977 [facility]-Zoster Vaccines (1 of 2) 1977 CT Colonography 07/30/2003 FIT-DNA 07/30/2003 FIT 07/30/2003 FOBT 07/30/2003 [facility]-Breast Cancer Screening 2008 [facility]-RSV Vaccine: 60+ Years o r (1 - Risk 60-74 years 1-dose series) 2018 OVV-SITNW-25 Vaccine (4 - 2023- season) 2024 05/11/2021, 08/25/2020, 07/28/2020 [facility]-Influenza Vaccine (#1) 2025 06/08/2023 [facility]-Depression Screening 10/20/2025 10/20/2024 Sigmoidoscopy 07/13/2029 07/13/2024 Colonoscopy 10/12/2034 10/12/2024 [facility]-Colorectal Cancer Screening 10/12/2034 [facility]-Obesity Intervention Completed 025, 06/16/2024 HPV Vaccines Aged Out No longer eligi ble based on patient's age to complete this topic [facility]-HIB Vaccines Aged Out No longer e ligible based on patient's age to complete this topic [facility]-Hepatitis A Vaccines Aged Out No longer eligible based on patient's age to complete this topic [facility]-IPV Vaccines Aged Out No longer e ligible based on patient's age to complete this topic [facility]-Rotavirus Vaccines Aged Out No lo nger eligible based on patient's age to complete this topic Goals Goal Patient Goal Type Associated Problems Recent Progress Patient-Stated? Author Autogenerat ed Goal Care Plan Autogenerated Problem No [employer] Implanted Type Area Child Guidance Counselor Device Identifier Shelf Expiration Date Model / Serial / Lot Duraclip 11mm - [id number] Implanted:Qty: 1 on 07/13/2024 by Leonel Potts MD at [id number] 12/09/2026 [id number] / / [id number] Procedures Procedure Name Priority Date/Time Associated Diagnosis Comments CEA, SERUM Routine 10/20/2024 9:43 AM EDT Malignant neoplasm of sigmoid colon (CMS/HCC) CT ABDOMEN PELVIS W IV CONTRAST Routine 10/20/2024 8:37 AM EDT Malignant neoplasm of sigmoid colon (CMS/HCC) CT CHEST W IV CONTRAST Routine 8:37 AM EDT Malignant neoplasm of sigmoid colon (CMS/HCC) COLONOSCOPY Routine 10/12/2024 8:30 AM EDT Malignant neoplasm of sigmoid colon (CMS/HCC) SURGICAL PATHOLOGY EXAM Routine 10/12/2024 8:21 AM EDT Malignant neoplasm of sigmoid colon (CMS/HCC) OXYGEN THERAPY Routine 10/12/2024 6:53 AM EDT FLEXIBLE SIGMOIDOSCOPY Routine 1:13 PM EST Malignant neoplasm of colon, unspecified part of colon (CMS/HCC) from Last 3 Months or Most Recently Relevant to Health Maintenance Results * CEA (10/20/2024 9:43 AM EDT) CEA, Serum 2.4 <4.0 ng/mL 10/20/2024 11:40 AM EDT [facility] Blood Venous blood specimen / Unknown Venipuncture / Unknown 10/20/2024 9:43 AM EDT 10/20/2024 10:09 AM EDT Narrative [facility] - 10/20/2024 11:40 AM EDT Normal range for smokers: < 5.5 ng/ml Normal range for non-smokers: <=4.0 ng/ml Performed by Elisabeth electrochemiluminescent immunoassay. Results obtained with different test methods or kits cannot be used interchangeably. us Leonel Potts MD LAB BLOOD ORDERABLES Final Res ult [facility] [address] [place] [address] * CT Abdomen Pelvis w IV Contrast (10/20/2024 8:37 AM EDT) Anatomical Region Laterality Modality Abdomen, Pelvis Computed Tomogra phy Impressions 10/20/2024 9:00 AM EDT Chest: No evidence of disease progression. Abdomen/Pelvis: No evidence of disease progression. CRITICAL RESULT: No. COMMUNICATION: Per this written report. Drafted by Hany Ortiz MD on 10/20/2024 8:51 AM Final report signed by Hany Ortiz MD on 10/20/2024 9:00 AM Narrative 10/20/2024 9:00 AM EDT CLINICAL INDICATION: Colon cancer, staging TECHNIQUE: Multiple axial CT images were obtained from thoracic inlet through pubic symphysis following administration of IV contrast, Omnipaque 300, 100 mL. Reformatted images in the coronal and sagittal planes were generated from the axial data set to facilitate diagnostic accuracy. Total DLP (Dose-Length Product): 1234.76 mGy.cm (accession [id number]), 1234.76 mGy.cm (accession [id number]) Please note: The reported value represents the total of one or more individual components during the CT acquisition on this date and at this time, and as such, the same value may appear in more than one CT report depending on the interpreting/reporting physicians. COMPARISON: CT from June 13, 2024 FINDINGS: Chest: Lymph Nodes and Mediastinum: Borderline enlarged pretracheal lymph node measuring 1.4 cm in short axis diameter (series 2 image 145) is unchanged. No mediastinal mass. Cardiovascular: The heart is normal in caliber. Thoracic great vessels are patent. Lungs and Pleura: Again noted are lung cysts with areas of honeycombing. Stable cluster of tiny nodules along the right horizontal fissure (series 3 image 49), presumably postinflammatory. No suspicious lung nodules to suggest metastatic disease. No pleural effusions or suspicious thickening. Musculoskeletal and Body Wall: There are degenerative changes of the spine. No clearly aggressive bone lesions. Abdomen/Pelvis: Solid Abdominal Organs: Liver contour is smooth. No discrete suspicious focal liver lesions. Unremarkable gallbladder. Unremarkable pancreas and spleen. Unremarkable adrenal glands. No hydronephrosis. No suspicious renal mass. GI Tract/Mesentery/Peritoneum: Large and small bowel appear normal in caliber. Normal appendix. Pelvic Viscera: Again noted is a widening of the endometrial stripe. No adnexal mass. Unremarkable urinary bladder. Lymph Nodes/Vasculature: No lymphadenopathy by CT size criteria. The aortoiliac vasculature is patent and normal in caliber. Free Fluid: No ascites Musculoskeletal and Body Wall: Scoliotic spine. There are degenerative changes of the spine. Procedure Note Hany Ortiz MD - 10/20/2024 CLINICAL INDICATION: Colon cancer, staging TECHNIQUE: Multiple axial CT images were obtained from thoracic inlet through pubicsymphysis following administration of IV contrast, Omnipaque 300, 100 mL.Reformatted images in the coronal and sagittal planes were generated fromthe axial data set to facilitate diagnostic accuracy. Total DLP (Dose-Length Product): 1234.76 mGy.cm (accession [id number]),1234.76 mGy.cm (accession [id number]) Please note: The reported valuerepresents the total of one or more individual components during the CTacquisition on this date and at this time, and as such, the same value mayappear in more than one CT report depending on the interpreting/reportingphysicians. COMPARISON: CT from June 13, 2024 FINDINGS: Chest: Lymph Nodes and Mediastinum: Borderline enlarged pretracheal lymph nodemeasuring 1.4 cm in short axis diameter (series 2 image 145) is unchanged.No mediastinal mass. Cardiovascular: The heart is normal in caliber. Thoracic great vessels arepatent. Lungs and Pleura: Again noted are lung cysts with areas of honeycombing.Stable cluster of tiny nodules along the right horizontal fissure (series3 image 49), presumably postinflammatory. No suspicious lung nodules tosuggest metastatic disease. No pleural effusions or suspiciousthickening. Musculoskeletal and Body Wall: There are degenerative changes of thespine. No clearly aggressive bone lesions. Abdomen/Pelvis: Solid Abdominal Organs: Liver contour is smooth. No discrete suspiciousfocal liver lesions. Unremarkable gallbladder. Unremarkable pancreas andspleen. Unremarkable adrenal glands. No hydronephrosis. No suspiciousrenal mass. GI Tract/Mesentery/Peritoneum: Large and small bowel appear normal incaliber. Normal appendix. Pelvic Viscera: Again noted is a widening of the endometrial stripe. Noadnexal mass. Unremarkable urinary bladder. Lymph Nodes/Vasculature: No lymphadenopathy by CT size criteria. Theaortoiliac vasculature is patent and normal in caliber. Free Fluid: No ascites Musculoskeletal and Body Wall: Scoliotic spine. There are degenerativechanges of the spine. IMPRESSION: Chest: No evidence of disease progression. Abdomen/Pelvis: No evidence of disease progression. CRITICAL RESULT: No. COMMUNICATION: Per this written report. Drafted by Hany Ortiz MD on 10/20/2024 8:51 AM Final report signed by Hany Ortiz MD on 10/20/2024 9:00 AM Leonel Potts MD IMG CT PROCEDURES Final Result * CT Chest w IV Contrast (10/20/2024 8:37 AM EDT) Anatomical Region Laterality Modality Chest Computed Tomogra phy Impressions 10/20/2024 9:00 AM EDT Chest: No evidence of disease progression. Abdomen/Pelvis: No evidence of disease progression. CRITICAL RESULT: No. COMMUNICATION: Per this written report. Drafted by Hany Ortiz MD on 10/20/2024 8:51 AM Final report signed by Hany Ortiz MD on 10/20/2024 9:00 AM Narrative 10/20/2024 9:00 AM EDT CLINICAL INDICATION: Colon cancer, staging TECHNIQUE: Multiple axial CT images were obtained from thoracic inlet through pubic symphysis following administration of IV contrast, Omnipaque 300, 100 mL. Reformatted images in the coronal and sagittal planes were generated from the axial data set to facilitate diagnostic accuracy. Total DLP (Dose-Length Product): 1234.76 mGy.cm (accession [id number]), 1234.76 mGy.cm (accession [id number]) Please note: The reported value represents the total of one or more individual components during the CT acquisition on this date and at this time, and as such, the same value may appear in more than one CT report depending on the interpreting/reporting physicians. COMPARISON: CT from June 13, 2024 FINDINGS: Chest: Lymph Nodes and Mediastinum: Borderline enlarged pretracheal lymph node measuring 1.4 cm in short axis diameter (series 2 image 145) is unchanged. No mediastinal mass. Cardiovascular: The heart is normal in caliber. Thoracic great vessels are patent. Lungs and Pleura: Again noted are lung cysts with areas of honeycombing. Stable cluster of tiny nodules along the right horizontal fissure (series 3 image 49), presumably postinflammatory. No suspicious lung nodules to suggest metastatic disease. No pleural effusions or suspicious thickening. Musculoskeletal and Body Wall: There are degenerative changes of the spine. No clearly aggressive bone lesions. Abdomen/Pelvis: Solid Abdominal Organs: Liver contour is smooth. No discrete suspicious focal liver lesions. Unremarkable gallbladder. Unremarkable pancreas and spleen. Unremarkable adrenal glands. No hydronephrosis. No suspicious renal mass. GI Tract/Mesentery/Peritoneum: Large and small bowel appear normal in caliber. Normal appendix. Pelvic Viscera: Again noted is a widening of the endometrial stripe. No adnexal mass. Unremarkable urinary bladder. Lymph Nodes/Vasculature: No lymphadenopathy by CT size criteria. The aortoiliac vasculature is patent and normal in caliber. Free Fluid: No ascites Musculoskeletal and Body Wall: Scoliotic spine. There are degenerative changes of the spine. Procedure Note Hany Ortiz MD - 10/20/2024 CLINICAL INDICATION: Colon cancer, staging TECHNIQUE: Multiple axial CT images were obtained from thoracic inlet through pubicsymphysis following administration of IV contrast, Omnipaque 300, 100 mL.Reformatted images in the coronal and sagittal planes were generated fromthe axial data set to facilitate diagnostic accuracy. Total DLP (Dose-Length Product): 1234.76 mGy.cm (accession [id number]),1234.76 mGy.cm (accession [id number]) Please note: The reported valuerepresents the total of one or more individual components during the CTacquisition on this date and at this time, and as such, the same value mayappear in more than one CT report depending on the interpreting/reportingphysicians. COMPARISON: CT from June 13, 2024 FINDINGS: Chest: Lymph Nodes and Mediastinum: Borderline enlarged pretracheal lymph nodemeasuring 1.4 cm in short axis diameter (series 2 image 145) is unchanged.No mediastinal mass. Cardiovascular: The heart is normal in caliber. Thoracic great vessels arepatent. Lungs and Pleura: Again noted are lung cysts with areas of honeycombing.Stable cluster of tiny nodules along the right horizontal fissure (series3 image 49), presumably postinflammatory. No suspicious lung nodules tosuggest metastatic disease. No pleural effusions or suspiciousthickening. Musculoskeletal and Body Wall: There are degenerative changes of thespine. No clearly aggressive bone lesions. Abdomen/Pelvis: Solid Abdominal Organs: Liver contour is smooth. No discrete suspiciousfocal liver lesions. Unremarkable gallbladder. Unremarkable pancreas andspleen. Unremarkable adrenal glands. No hydronephrosis. No suspiciousrenal mass. GI Tract/Mesentery/Peritoneum: Large and small bowel appear normal incaliber. Normal appendix. Pelvic Viscera: Again noted is a widening of the endometrial stripe. Noadnexal mass. Unremarkable urinary bladder. Lymph Nodes/Vasculature: No lymphadenopathy by CT size criteria. Theaortoiliac vasculature is patent and normal in caliber. Free Fluid: No ascites Musculoskeletal and Body Wall: Scoliotic spine. There are degenerativechanges of the spine. IMPRESSION: Chest: No evidence of disease progression. Abdomen/Pelvis: No evidence of disease progression. CRITICAL RESULT: No. COMMUNICATION: Per this written report. Drafted by Hany Ortiz MD on 10/20/2024 8:51 AM Final report signed by Hany Ortiz MD on 10/20/2024 9:00 AM Leonel Potts MD IMG CT PROCEDURES Final Result * Colonoscopy (10/12/2024 8:30 AM EDT) Anatomical Region Laterality Modality Endoscopy Narrative 10/12/2024 8:32 AM EDT Table formatting from the original result was not included. Impression: 3 polyps were removed with cold forceps biopsy Additional colonoscopy completed after May 2024 colonoscopy demonstrated malignant polyp in the sigmoid colon that appeared to be removed completely endoscopically. Today, short interval colonoscopy demonstrates a right colon polyp that is 5 mm in size. Removed. Benign-appearing. Additional finding includes an Endo clip that remains in place from prior procedure located in the sigmoid colon approximately 25 cm from the verge. Biopsies from the mucosa surrounding the clip was performed as well as an additional polyp removed 3 cm distal to this location for which there was also an associated mucosal scar from what appeared to be a previous polypectomy. Overall, no direct evidence of residual persistent adenocarcinoma recurrent disease. Await pathology results. Post Procedure Diagnosis None Recommendations Await pathology results Indication Order Indication: Malignant neoplasm of sigmoid colon (CMS/HCC) Medications See anesthesia record for anesthesia administered medications. Staff Staff Role Luis Capps Endo Nurse Erlin Forrester Endo Control Officer Manager Bret Garland, Leonel Navarro CRNA, MD Proceduralist Ata Samuels MD Anesthesiologist Preprocedure A history and physical has been performed, and patient medication allergies have been reviewed. The patient's tolerance of previous anesthesia has been reviewed. The risks and benefits of the procedure and the sedation options and risks were discussed with the patient. All questions were answered and informed consent obtained. Details of the Procedure The patient underwent monitored anesthesia care, which was administered by an anesthesia professional. The patient's blood pressure, heart rate, level of consciousness, respirations and oxygen were monitored throughout the procedure. A digital rectal exam was performed. A perianal exam was performed. The scope was introduced through the anus and advanced to the cecum. Retroflexion was performed in the rectum. The quality of bowel preparation was evaluated using the [place] Bowel Preparation Scale with scores of: right colon = 2, transverse colon = 2, left colon = 2. The total BBPS score was 6. Bowel prep was adequate. The patient experienced no blood loss. The procedure was not difficult. The patient tolerated the procedure well. There were no apparent adverse events. Attestation I personally performed the entire procedure Events Procedure Events Event Event Time ENDO SCOPE IN TIME 10/12/2024 8:17 AM ENDO CECUM REACHED 10/12/2024 8:20 AM ENDO SCOPE OUT TIME 10/12/2024 8:28 AM Specimens ID Type Source Tests Collected by Time A : Right Colon polyp Tissue Ascending Colon SURGICAL PATHOLOGY EXAM Leonel Potts MD 10/12/2024 08 B : sigmoid colon polyp Tissue Sigmoid Colon SURGICAL PATHOLOGY EXAM Leonel Potts MD 10/12/2024 0825 Findings One sessile and benign-appearing polyp measuring smaller than 5 mm in the ascending colon; performed cold forceps biopsy with complete en bloc removal Two sessile and benign-appearing polyps measuring smaller than 5 mm in the sigmoid colon; performed cold forceps biopsy with complete en bloc removal Leonel Potts MD GI PROCEDURE ORDERABLES Final Result * Surgical Pathology Exam (10/12/2024 8:21 AM EDT) Case Report Surgical Pathology Case: [id number] Authorizing Provider: Leonel Potts MD Collected: 10/12/2024820 Ordering Location: [facility] Endoscopy Received: 10/12/2024 1026 Pathologist: Violeta Kirkpatrick MD Specimens: A) - Ascending Colon, Right Colon polyp B) - Sigmoid Colon, sigmoid colon polyp 10/13/2024 5:07 PM EDT [facility] Final Diagnosis A. LARGE INTESTINE, RIGHT COLON, POLYP, BIOPSY: - TUBULAR ADENOMA. B. LARGE INTESTINE, SIGMOID COLON, POLYP, BIOPSY: - HYPERPLASTIC POLYPS (2). 10/13/2024 5:07 PM EDT [facility] at 1707 EDT Clinical Information C18.7 - Malignant neoplasm of sigmoid colon (CMS/HCC) [ICD-10-CM] 3 polyps were removed with cold forceps biopsy. 10/13/2024 5:07 PM EDT [facility] Gross Description A. RIGHT COLON POLYP Received in formalin labeled right colon polyp , is 1 white-paul soft tissue fragment measuring 0.3 cm in greatest dimension. Entirely submitted in cassette A1. Cold Time: 1m Nelly B Pettey B. SIGMOID COLON POLYP Received in formalin labeled s igmoid colon polyp , are 5 white-paul soft tissue fragments that range from 0.1-0.5 cm in greatest dimension. Entirely submitted in cassette B1. Cold Time: 1m Nelly B Pettey 10/13/2024 5:07 PM EDT [facility] Note: A resident was involved in the service. I attest I examined the relevant preparations for the specimens and confirmed the diagnosis or interpretation. 10/13/2024 5:07 PM EDT [facility] Tissue Ascending colon structure / Unknown 10/12/2024 8:21 AM EDT 10/12/2024 10:26 AM EDT Tissue specimen (specimen) Sigmoid colon structure / Unknown 10/12/2024 8:25 AM EDT 10/12/2024 10:26 AM EDT us Leonel Potts MD LAB PATHOLOGY ORDERABLES Final Result Performing Organization Address City/State/[facility] Co de Phone Number [facility] [address] [place] [address] * Flexible Sigmoidoscopy (07/13/2024 1:13 PM EST) Anatomical Region Laterality Modality Endoscopy Narrative 07/13/2024 1:12 PM EST Table formatting from the original result was not included. Impression: Mild ulcerated mucosa in the sigmoid colon; performed cold forceps biopsy; placed clips Flexible sigmoidoscopy performed in the setting of multiple polyps identified at recent colonoscopy. Polyps removed, yet 1 polyp identified in the sigmoid colon consistent with adenocarcinoma. Additional polyp in the descending colon with high-grade dysplasia. Prep was inadequate in the left colon preventing localization of the polypectomy site with high-grade dysplasia. However, a large polypectomy site was identified by stellate scar in the sigmoid colon 25 cm from the anal verge. Additional biopsies were obtained from this area in the location was marked with an Endo clip. Postprocedure KUB requested. Await pathology. If malignant or high-grade dysplasia sigmoid/left colectomy recommended. Recommendations Await pathology results Indication Malignant neoplasm of colon, unspecified part of colon (CMS/HCC) Medications See anesthesia record for anesthesia administered medications. Staff Staff Role Malissa Corona MD Anesthesiologist Marium Cadena RN Endo Nurse Leonel Potts MD Proceduralist Ofelia Kirkpatrick CRNA, NIKOS [place] MD Other - Other (see comments) Lori Cedillo Endo Control Officer Manager Preprocedure A history and physical has been performed, and patient medication allergies have been reviewed. The patient's tolerance of previous anesthesia has been reviewed. The risks and benefits of the procedure and the sedation options and risks were discussed with the patient. All questions were answered and informed consent obtained. Details of the Procedure The patient underwent monitored anesthesia care, which was administered by an anesthesia professional. The patient's blood pressure, heart rate, level of consciousness, oxygen and respirations were monitored throughout the procedure. A digital rectal exam was performed. A perianal exam was performed. The scope was introduced through the anus and advanced to the descending colon. Retroflexion was performed in the rectum. The quality of bowel preparation was evaluated using the [place] Bowel Preparation Scale with scores of: left colon = 2. Bowel prep was adequate. The patient experienced no blood loss. The procedure was not difficult. The patient tolerated the procedure well. There were no apparent adverse events. Attestation I personally performed the entire procedure Specimens ID Type Source Tests Collected by Time A : polyp Tissue Sigmoid Colon SURGICAL PATHOLOGY EXAM Leonel Potts MD 07/13/2024 1306 Findings Mild, localized ulcerated mucosa in the sigmoid colon; performed cold forceps biopsy; placed clips Leonel Potts MD GI PROCEDURE ORDERABLES Final Result from Last 3 Months or Most Recently Relevant to Health Maintenance Additional Health Concerns Active Problems Noted Date Diagnosed Date Autogenerated Problem 10/20/2024 Insurance [employer]IC[employer] Care Teams Form Press Operator Relationship Specialty Start Date End Date Elida Ortiz APRN [address] [place] [address] PCP - General 03/27/24
--- OUTSIDE RECORDS SUMMARY | 2024-12-28 10:05 | XMS_ITS | Encounter Summary ---
Author Organization [facility] Address [address] [place] [address] Care Team Providers Care Cash Applications Coordinator Name Role Phone Elida Ortiz APRN Primary Care Provider [phone]- [phone] Encounter Details Date Type Department Care Team (Late Contact Info) Description 06/09/2024 Lab Requisition [facility] [address] [place] [phone] Leonel Potts MD [address] [address] Chest pain, unspecified Social History Tobacco Use Types Packs/Day Years Used Date Smoking Tobacco: Never Assessed Comments Unknown Sex and Gender Information Value Date Recorded Sex Assigned at Not on file Legal Sex Female 4:07 PM EDT Gender Identity Not on file Sexual Orientation Not on file documented as of this encounter Plan of Treatment Upcoming Encounters Date Type Department Care Team (Late Contact Info) Description 04/05/2025 8:50 AM EST Appointment [facility] Endoscopy [address] [place] [phone] Leonel Potts MD [address] [address] 04/05/2025 11:20 AM EST Appointment [facility] Radiology [address] [place] [address] documented as of this encounter Procedures Procedure Name Priority Date/Time Associated Diagnosis Comments SURGICAL PATHOLOGY CONSULT Routine 06/09/2024 1:39 PM EST Chest pain, unspecified documented in this encounter Results * Surgical Pathology Consult (06/09/2024 1:39 PM EST) Case Report Sugical Pathology Consult Case: [id number] Authorizing Provider: Leonel Potts MD Collected: 06/09/2024 8501 Ordering Location: [facility] Lab Received: 06/09/2024 6039 Pathologist: Johnie Barrios DO Specimen: Colon, [id number] 10:08 AM EST [facility] Final Diagnosis OUTSIDE SLIDES; [id number], B AND D; 05/28/2024 B. DESIGNATED SIGMOID COLON POLP, X2 , BIOPSY: - MODERATELY DIFFERENTIATED ADENOCARCINOMA, INVASIVE. - MMR BY IHC (PER REPORT): - RETAINED NUCLEAR STAINING OF ALL FOUR PROTEINS (MLH1, PMS2, MSH2 AND MSH6). - HYPERPLASTIC POLYP. D. DESIGNATED DESCENDING COLON POLYP, X2 , BIOPSY: - FRAGMENT OF COLONIC MUCOSA WITH AT LEAST HIGH-GRADE DYSPLASIA (SEE COMMENT). - FRAGMENT OF TUBULAR ADENOMA. - FRAGMENT OF HYPERPLASTIC POLYP. 10:08 AM EST [facility] at 1008 EST Comment The reported endoscopic findings of two polyps in the sigmoid colon (5 and 14 mm) and two polyps in the descending colon (4 and 5 mm) is noted. Section from the sigmoid colon specimen harbor an invasive adenocarcinoma. Sections from the descending colon exhibit a fragment of tubular adenoma, a fragment of hyperplastic polyp, as well as one detached fragment of colonic mucosa with at least high-grade glandular dysplasia. The possibility that this fragment represents contaminant/carry over from the process within the sigmoid colon or that it originated from the descending colon cannot be entirely excluded based upon the microscopic findings. Should resection be clinically indicated, inclusion of both areas is recommended. The patient's clinical of abnormal imaging findings of the uterus is noted. Immunostains are performed at the [facility] which confirms these processes to be colorectal in origin. 10:08 AM EST [facility] Clinical Information R07.9 - Chest pain, unspecified [ICD-10-CM] 10:08 AM EST [facility] Special and Immunohistochemical Stains IHC: A2-1 CK20: Positive in lesional cells. A2-2 SATB2: Positive in lesional cells. A2-3 PAX8: Negative in lesional cells. A3-1 CK20: Positive in lesional cells. A3-2 SATB2: Positive in lesional cells. A3-3 PAX8: Negative in lesional cells. All controls show appropriate reactivity. All immunohistochemis try, in situ hybridization, and histochemical tests were developed by and are performed at the [facility], [address] [place] [address]. All tests reported here, except those addressing HER2 (breast) and PD-L1 expression as predictive markers, have not been cleared by or approved by the US Food and Drug Administration (FDA). The FDA has determined that such clearance or approval is not necessary. The laboratory is regulated under CLIA as qualified to perform high-complexity testing. The tests are used for clinical purposes. They should not be regarded as investigational or for research. This assay has not been validated on decalcified tissues. Results should be interpreted with caution given the likelihood of false negativity on decalcified specimens. 10:08 AM [facility] Gross Description A. [id number] Received along with a corresponding pathology report from [facility] are 2 slides labeled outside case: [id number] collected on 05/28/2024. Also received 06/17/2024 by request are 2 blocks as noted. 10:08 AM [facility] Intradepartmental Consultation with Agreement Dr. Kirkpatrick 10:08 AM [facility] Note: A resident was involved in the service. I attest I examined the relevant preparations for the specimens and confirmed the diagnosis or interpretation. 5 10:08 AM [facility] Tissue Colon structure / Unknown 06/09/2024 1:39 PM EST 06/09/2024 1:33 PM EST us Leonel Potts MD LAB PATHOLOGY [place] [address] documented in this encounter Visit Diagnoses Diagnosis Chest pain, unspecified documented in this encounter Care Teams Cash Applications Coordinator Relationship Specialty Start Date End Date Elida Ortiz APRN [address] [place] [address] PCP - General 03/27/24 documented as of this encounter
[2024-12-28 11:15] VITALS: PULSE 62; PULSE 68
[2024-12-28] MEDS: ALBUTEROL 0.083% 2.5 MG/3 ML NEB IH (11:15)
== END 2024-12-28 23:59 | disposition home or self-care (01) ==
LOC: RT 10:03
PROVIDERS: PCP Nurse Practitioner; Visit Provider Internal Medicine Pulmonary Disease
DX: R94.2 Abnormal results of pulmonary function studies (principal); R06.02 Shortness of breath; R06.09 Other forms of dyspnea
CPT/HCPCS: 94060; 94618; 94640

== ENCOUNTER 2025-03-30 14:27 | Outpatient (CLI) | payer MEDICARE, SELFPAY ==
--- OUTSIDE RECORDS SUMMARY | 2025-03-30 14:30 | XMS_ITS | Encounter Summary ---
Author Organization [facility] Address [address] [place] [address] Care Team Providers Care Plate Worker Name Role Phone Elida Ortiz APRN Primary Care Provider + [phone] Encounter Details Date Type Department Care Team ([facility] Contact Info) Description 10/15/2024 Results Follow-Up [facility] RHEUMATOLOGY [address] [place] [phone] Alfredo Banks APRN [address] [id number] Social History Tobacco Use Types Packs/Day Years [...] Description 04/16/2025 10:00 AM EST Office Visit [facility] RHEUMATOLOGY [address] [place] [place] [phone] Morteza Samaniego MD [address] [phone] documented as of this encounter Visit Diagnoses Not on filedocumented in this encounter Care Teams Plate Worker Relationship Specialty Start Date End Date Elida Ortiz APRN [address] [phone] PCP - General Internal Medicine 06/23/24 documented as of this encounter
--- OUTSIDE RECORDS SUMMARY | 2025-03-30 14:30 | XMS_ITS | Encounter Summary ---
Author Organization [facility] Address [address] [place] [address] Care Team Providers Care Hookman Name Role Phone Elida Ortiz APRN Primary Care Provider [phone]- [phone] Encounter Details Date Type Department Care Team (Late Contact Info) Description 06/09/2024 Lab Requisition [facility] [address] [place] [phone] Leonel Potts MD [address] [phone] Chest pain, unspecified Social History Tobacco Use [...] Care Team (Late Contact Info) Description 04/05/2025 9:00 AM EST Appointment [facility] Endoscopy [address] [place] [phone] Leonel Potts MD [address] [phone] 04/05/2025 11:20 AM EST Appointment [facility] Radiology [address] [place] [phone] documented as of this encounter Procedures Procedure Name Priority Date/Time Associated Diagnosis Comments SURGICAL PATHOLOGY CONSULT Routine 06/09/2024 1:39 PM EST Chest pain, unspecified documented in this encounter Results * Surgical Pathology Consult (06/09/2024 1:39 PM EST) Case Report Sugical Pathology Consult Case: [id number] Authorizing Provider: Leonel Potts MD Collected: 06/09/2024 5098 Ordering Location: [facility] Lab Received: 06/09/2024 3330 Pathologist: Johnie Barrios DO Specimen: Colon, [id number] 10:08 AM EST [facility] Final Diagnosis OUTSIDE SLIDES; [id number], B AND D; 05/28/2024 B. DESIGNATED SIGMOID [...] FRAGMENT OF HYPERPLASTIC POLYP. 10:08 AM EST [facility] at 1008 EST Comment The reported [...] is noted. Immunostains are performed at the [facility] which confirms these processes to be colorectal in origin. 10:08 AM EST [facility] Clinical Information R07.9 - Chest pain, unspecified [ICD-10-CM] 10:08 AM EST [facility] Special and Immunohistochemical Stains IHC: A2-1 [...] developed by and are performed at the [facility], [address] [place] [address]. All tests reported here, except those addressing [...] false negativity on decalcified specimens. 10:08 AM [facility] Gross Description A. [id number] Received along with a corresponding pathology report from [facility] are 2 slides labeled outside case: [id number] collected on 05/28/2024. Also received 06/17/2024 by request are 2 blocks as noted. 10:08 AM [facility] Intradepartmental Consultation with Agreement Dr. Kirkpatrick 10:08 AM [facility] Note: A resident was involved in the service. I attest I examined the relevant preparations for the specimens and confirmed the diagnosis or interpretation. 5 10:08 AM [facility] Tissue Colon structure / Unknown 06/09/2024 1:39 PM EST 06/09/2024 1:33 PM EST us Leonel Potts MD LAB PATHOLOGY [place] [address] documented in this encounter Visit Diagnoses Diagnosis Chest pain, unspecified documented in this encounter Care Teams Hookman Relationship Specialty Start Date End Date Elida Ortiz APRN [address] [place] [address] PCP - General 03/27/24 documented as of this encounter
--- OUTSIDE RECORDS SUMMARY | 2025-03-30 14:30 | XMS_ITS | Clinical Summary ---
Author Organization [facility] Address [address] [place] [address] Care Team Providers Care Warehouse General Laborer Name Role Phone Angel Elida PEREZ Primary Care Provider + [phone] Allergies Active Allergy Reactions Criticality Noted Date Comments Prednisone Headache Low 06/16/2024 Medications bisoprolol (ZEBeta) 10 MG tablet Take 1 tablet by mouth Daily. Active Cholecalciferol 250 MCG (78856 UT) capsule Take 10,000 Units by mouth Daily. Active hydroCHLOROthia zide (MICROZIDE) 12.5 MG capsule Take 1 capsule by mouth Daily. Active Xarelto 20 MG tablet TAKE 1 TABLET(20 MG) orally daily; administer with evening meal Active acetaminophen (TYLENOL) 650 MG 8 hr tablet Take 1 tablet by mouth Every 8 (Eight) Hours As Needed for Mild Pain. Active hydroxychloroqu ine (PLAQUENIL) 200 MG tablet take One tablet daily for rheumatoid arthritis 90 tablet 1 5 Active Active Problems Problem Noted Date Diagnosed [...] Encounters Date Type Department Care Team Description 12/31/2024 Refill [facility] RHEUMATOLOGY [address] [place] [phone] Morteza Samaniego MD from Last 3 Months [...] Description 04/16/2025 10:00 AM EST Office Visit [facility] RHEUMATOLOGY [address] [facility] [address] [place] [address] Morteza Samaniego MD [address] [facility] [address] [place], [place] [phone] Health Maintenance Due Date Last Done Comments DXA SCAN 1960 TDAP/TD VACCINES (1 - Tdap) 1977 MAMMOGRAM 1998 [address] 07/30/2003 CT COLONOGRAPHY 07/30/2003 FECAL OCCULT BLOOD TEST 07/30/2003 FIT Testing (1 year) 07/30/2003 Pneumococcal Vaccine 50+ (1 of 1 - PCV) 2008 ZOSTER VACCINE (1 of 2) 2008 COVID-19 Vaccine (3 - Modern a risk series) 06/08/2021 05/11/2021, 08/25/2020, 07/28/2020 ANNUAL WELLNESS VISIT 03/23/2024 HEPATITIS C SCREENING 03/23/2024 INFLUENZA VACCINE 12/25/2024 06/08/2023 COLON CANCER SCREENING 5 YEA R SIGMOIDOSCOPY 07/13/2029 07/13/2024 COLONOSCOPY 10/12/2034 10/12/2024, 10/12/2024 COLORECTAL CANCER SCREENING 10/12/2034 Insurance PPO Member Subscriber Plan / Payer (Ef fective 2024-Present) Name:Bettina Persaud Relation to Subscriber:Spouse Name:MIREYA PERSAUD Date of :1956 (Home) Address: [address] [place] [id number] Payer ID:[id number] (NAIC) Type:Not on file Address: [address] [place] [id number] [facility] [employer] PPO Care Teams Warehouse General Laborer Relationship Specialty Start Date End Date Elida Ortiz APRN [address] [place] [address] PCP - General Internal Medicine 06/23/24
--- OUTSIDE RECORDS SUMMARY | 2025-03-30 14:30 | XMS_ITS | Clinical Summary ---
Author Organization [facility] Address [address] [place] [address] Care Team Providers Care Manager Of Development Name Role Phone Elida Ortiz APRN Primary Care Provider [phone]- [phone] Allergies Active Allergy Reactions Criticality Noted Date [...] daily. Active cholecalciferol (Vitamin D-3) 250 MCG (06855 UT) capsule Take 1 capsule by mouth [...] every 6 hours for 7 days Active Social History Tobacco Use Types Packs/Day Years [...] Team (Late st Contact Info) Description 04/05/2025 9:00 AM EST Appointment [facility] [address] [place] [address] Leonel Potts MD [address] [facility] [address] [place] [address] 04/05/2025 11:20 AM EST Appointment [facility] [address] [place] [address] Health Maintenance Due Date Last Done Comments [facility]-Bone Density Scan 1958 [facility]-Hepatitis C Screening 1958 [facility]-Medicare Annual Wellness (AWV) 1958 [facility]-/Child/Adol SDOH Screenings 1958 [facility]- SDOH Screenings 1976 [facility]-Adult SDOH Screenings 1976 [facility]-DTaP,Tdap,and Td Vaccine s (1 - Tdap) 1977 [facility]-Pneumococcal Vaccine: 50 + Years (1 of 2 - PCV) 1977 [facility]-Zoster Vaccines (1 of 2) 1977 CT Colonography 07/30/2003 FIT-DNA 07/30/2003 FIT 07/30/2003 FOBT 07/30/2003 [facility]-Breast Cancer Screening 2008 [facility]-RSV Vaccine: 60+ Years o r (1 - Risk 60-74 years 1-dose series) 2018 [id number] Vaccine ( season) 2025 05/11/2021, 08/25/2020, 07/28/2020 [facility]-Influenza Vaccine (#1) 2025 [...] [employer] Implanted Type Area Occupational Therapy Aide Device Identifier Shelf Expiration Date Model / Serial / Lot Duraclip 11mm - [id number] Implanted:Qty: 1 on 07/13/2024 by Leonel Potts MD at [facility] [id number] 12/09/2026 [id number] / / [id number] Procedures Procedure Name Priority Date/Time Associated Diagnosis Comments COLONOSCOPY Routine 10/12/2024 8:30 AM EDT Malignant neoplasm of sigmoid colon (CMS/HCC) FLEXIBLE SIGMOIDOSCOPY Routine 1:13 PM EST Malignant neoplasm of colon, unspecified part of colon (CMS/HCC) from Last 3 Months or Most Recently Relevant to Health Maintenance Results * Colonoscopy (10/12/2024 8:30 AM EDT) Anatomical [...] Luis Capps Endo Nurse Erlin Forrester Endo Head Wrestling Coach Bret Garland CRNA CRNA Hourigan, Jon S, MD Proceduralist Ata Samuels MD Anesthesiologist Preprocedure [...] of bowel preparation was evaluated using the [place] Bowel Preparation Scale with scores of: right [...] SURGICAL PATHOLOGY EXAM Leonel Potts MD 10/12/2024 0821 B : sigmoid colon polyp Tissue Sigmoid Colon SURGICAL PATHOLOGY EXAM Leonel Potts MD 10/12/2024 0825 Findings One sessile and benign-appearing polyp measuring smaller than 5 mm in the ascending colon; performed cold forceps biopsy with complete en bloc removal Two sessile and benign-appearing polyps measuring smaller than 5 mm in the sigmoid colon; performed cold forceps biopsy with complete en bloc removal us Leonel Potts MD GI PROCEDURE ORDERABLES Final Result * Flexible Sigmoidoscopy (07/13/2024 1:13 PM EST) [...] - Other (see comments) Lori Cedillo Endo Head Wrestling Coach Preprocedure A history and physical has been [...] of bowel preparation was evaluated using the [place] Bowel Preparation Scale with scores of: left [...] Date Diagnosed Date Autogenerated Problem 10/20/2024 Insurance [facility] MEDICARE Care Teams Manager Of Development Relationship Specialty Start Date End Date Elida Ortiz APRN [address] [place] [address] PCP - General 03/27/24
--- NOTE | 2025-03-30 14:45 | CA_ITS ---
APPROVED REPORT EXAM: Comprehensive 2D, Doppler, and color-flow Echocardiogram Frame Opener: KATIUSKA Babcock, RVS Ht: 5 ft 1 in Wt: 264lbs BSA: 2.13 BP: 160/80 mmHg Indications: Rv dilation, SOA 2D Dimensions Left Atrium 4.52 cm LA Volume 42.90 mL LA Volume Index [id number] mL/m2 (M/F) 16-34 M-Mode Dimensions RVDd 2.20 cm (0.9-2.6) LA Diam 3.85 cm (1.9-4.0) LVDd 4.97 cm (3.5-5.7) LVDs 3.38 cm (3.5-5.7) IVSd 0.95 cm (0.6-1.1) PWd 1.18 cm (0.6-1.1) EF (Teich) 59.90% EPSs 0.42 cm FS 32.00% EDV (Teich) 116.60 mL TAPSE 2.42 (<1.7) ESV (Teich) 46.80 mL LV Diastology E Decel Time 183 (160-240 msec) E/A Ratio 0.85 MED A' 12.70 cm/s LAT A' 14.10 cm/s Aortic Valve KUMAR Index 0.87 cm2/m2 AoV Peak Jerald. 160.0 (50-130 cm/s) AO Peak GR. 10.20 mmHg AO Mean GR. 5.90 (<5 mmHg) AO VTI 38.5 (18-25 cm) KUMAR (VTI) 1.89 (2.5-4.5 cm2) Mitral Valve MV A Velocity 83.0 (40-130 cm/s) E/A Ratio 0.85 Left Ventricle The left ventricle is normal size. Left ventricular systolic function is normal. The left ventricular ejection fraction is within the normal range. There is normal left ventricular wall thickness. There is normal LV segmental wall motion. The left ventricular diastolic function is normal. LVEF is 55% Right Ventricle The right ventricle is mildly dilated. The right ventricular systolic function is normal. Atria The left atrium size is normal. The right atrium size is normal. There is no color Doppler evidence of interatrial shunt. Aortic Valve The aortic valve opens well. There is no hemodynamically significant aortic valvular stenosis. No aortic regurgitation is present. Mitral Valve The mitral valve is normal in structure. No evidence of mitral valve stenosis. Trace mitral regurgitation is present. Tricuspid Valve The tricuspid valve leaflets are thin and pliable. Trace tricuspid regurgitation. There is insufficient TR jet to estimate RVSP. Pulmonic Valve The pulmonary valve is grossly normal in structure. Trace pulmonic valve regurgitation is present. Great Vessels The aortic root is normal in size. IVC is normal in size and collapses >50% with inspiration. Pericardium There is no pericardial effusion. Other Information Study Quality: Technically Difficult Conclusion Normal biventricular systolic function. Mild RV dilation. No significant valvular stenosis or regurgitation. Electronically signed by : Tg Glasgow MD 03/31/2025 00:09:25
== END 2025-03-30 23:59 | disposition home or self-care (01) ==
LOC: RT 14:28
PROVIDERS: PCP Nurse Practitioner; Visit Provider Physician Assistant
DX: I42.0 Dilated cardiomyopathy (principal)
CPT/HCPCS: 93306